=== PATIENT | female | born 1945 | race Caucasian/White ===

== ENCOUNTER 2021-05-17 19:42 | Emergency (ER) | payer OTHER, SELFPAY ==
--- NOTE | ~2021-05-17 | XR_ITS ---
EXAMINATION: XR chest 2V DATE: 05/17/2021 20:17 INDICATION: Weakness TECHNIQUE: PA and lateral views of the chest are obtained. COMPARISON: 09/24/2010 FINDINGS: The lungs are free of acute opacities. There is no pleural effusion or pneumothorax. The ca rdiomediastinal silhouette is normal. There is mild thoracic spondylosis. IMPRESSION: 1. No acute cardiopulmonary abnormality. Reviewed, dictated and finalized at location F. LUMIN METALWORKER
[2021-05-17 19:47] VITALS: BP 146/92; PULSE 84; RESP 18; TEMP 36.4; O2SAT 97
--- NOTE | 2021-05-17 20:07 | ECG_ITS ---
Measurements Intervals [place] Rate: 78 P: 45 [place]: 129 QRS: -25 QRSD: 95 T: 81 QT: 393 QTc: 449 Interpretive Statements SINUS RHYTHM ATRIAL PREMATURE COMPLEXES INCOMPLETE RIGHT BUNDLE BRANCH BLOCK DELAYED PRECORDIAL R/S TRANSITION BASELINE ARTIFACT- I, II, AVR, AVL, AVF, V3 BORDERLINE ECG Electronically Signed On 05-18-2021 7:22:27 CONTROL CLERK by Bennett Greer D.O.
--- NOTE | 2021-05-17 20:11 | PC.NURSE ---
Patient unsuccessful to provide a urine specimen. Patient taken to Xray via w/c.
--- NOTE | 2021-05-17 20:38 | ED.GENADULT ---
HPI - General Adult General Chief complaint: Unspecified Stated complaint: feeling bad for several weeks Time Seen by Provider: 05/17/21 19:50 Source: patient, RN notes reviewed and old records reviewed Mode of arrival: ambulatory Limitations: no limitations History of Present Illness HPI narrative: This is a 76 year old female with history of depression, anxiety, and hypertension who presents for evaluation for feeling unwell. Patient reports she does not feel well for several weeks. She does not have much of an appetite because nothing taste good. She is eating very little. She also reports some fatigue. She denies falling, chest pain, headache, shortness of breath, cough, abdominal pain or dysuria. She was given antibiotics for possible UTI 2 weeks ago but denies any urinary symptoms. She denies having diarrhea today. Related Data Allergies Allergy/AdvReac Type Severity Reaction Status Date / Time doxycycline Allergy Unknown Difficulty Verified 05/17/21 19:55 Breathing Penicillins Allergy Unknown Rash Verified 05/17/21 19:55 prednisone Allergy Unknown Difficulty Verified 05/17/21 19:55 Breathing Review of Systems Review of Systems: All systems reviewed & are unremarkable except as noted in HPI and below PMFSH Past Medical History Medical History Corneal abnormality Encounter for vitamin deficiency screening Screening for breast cancer Family History Family History Sibling Hypertension Family history of alcoholism Patient's brother is , Onset Age: 77 Father Family history of renal cell carcinoma Social History Social History Smoking packs per day: 1 Smoking cigarettes per day: 20.0 Years smoked: 20 Smoking pack-years: 20.00 Smoking status: Former smoker Smoking end date: 03/26/79 Alcohol intake: never Substance use: never Exam Const: General: cooperative, no acute distress and alert Orientation/consciousness: patient oriented x3 HENMT: Head: normal to inspection, normocephalic and atraumatic Face and sinus: face symmetric Throat: tonsils normal and uvula midline Chest: Chest palpation & inspection: normal inspection of the chest Resp: Effort & Inspection: normal respiratory effort and able to speak in complete sentences Auscultation: clear to auscultation bilaterally Cardio: Rate: regular rate Rhythm: regular rhythm Heart sounds: S1 normal heart sound present GI: GI Palp: Yes Soft to palpation, No Firmness to palpation present (GI), No Tenderness to palpation present (GI) and No Rigid due to palpation Back/Spine/Pelvis: Back: no CVA tenderness Skin: General skin exam: normal color Neuro: General: patient oriented x3 Course Reevaluation(s) Reevaluation #1: Patient was given oral potassium supplemenatation and magnesium supplementation in ER. THis is likely low because patient is not eating. She will follow up with PCP Date: 05/18/21 Time: 00:20 Vital Signs Vital signs: Vital Signs Temperature 97.6 F 05/17/21 19:47 Pulse Rate 84 05/17/21 19:47 Respiratory Rate 18 05/17/21 19:47 Blood Pressure 146/92 H 05/17/21 19:47 Pulse Oximetry 97 05/17/21 19:47 Temperature 98 F 05/18/21 00:35 Pulse Rate 75 05/18/21 00:35 Respiratory Rate 18 05/18/21 00:35 Blood Pressure 128/80 05/18/21 00:35 Pulse Oximetry 98 05/18/21 00:35 Medical Decision Making Vital Signs Vital Signs: Vital Signs Temperature 97.6 F 05/17/21 19:47 Pulse Rate 84 05/17/21 19:47 Respiratory Rate 18 05/17/21 19:47 Blood Pressure 146/92 H 05/17/21 19:47 Pulse Oximetry 97 05/17/21 19:47 Temperature 98 F 05/18/21 00:35 Pulse Rate 75 05/18/21 00:35 Respiratory Rate 18 05/18/21 00:35 Blood Pressure 128/80 05/18/21 00:35 Pulse Oximetry 98
[2021-05-17 20:44] LABS: Basophils Absolute Auto 0.1 K/mm3 (0.0-0.1); Basophils Percent Auto 0.8 % (0.2-1.2); Eosinophils Absolute Auto 0.1 K/mm3 (0-0.3); Hematocrit 40.4 % (37.0-47.0); Hemoglobin 13.7 g/dL (12.0-15.0); Immature Granulocyte Absolute 0.02 K/mm3 (0.00-0.031); Immature Granulocyte Percent A 0.2 % (0-0.5); Lymphocytes Absolute Auto 1.51 K/mm3 (0.9-3.2); Lymphocytes Percent Auto 17.6 % (18.3-44.2); Mean Corpuscular HGB Conc 33.9 g/dl (32-36); Mean Corpuscular Hemoglobin 34.8 pg (26-34); Mean Corpuscular Volume 102.5 fl (80-100); Mean Platelet Volume 10.2 fl (7.4-10.4); Monocytes Absolute Auto 0.8 K/mm3 (0.1-0.6); Monocytes Percent Auto 8.7 % (2.6-8.5); Neutrophils Absolute Auto 6.1 K/mm3 (1.3-6.7); Neutrophils Percent Auto 71.7 % (45.5-73.1); Platelet Count Result 271 k/mm3 (150-375); Red Blood Count 3.94 M/mm3 (4.2-5.4); Red Cell Distribution Width 12.7 % (11.5-14.5); White Blood Count 8.6 K/mm3 (4.5-10.0)
[2021-05-17 20:57] LABS: Alanine Aminotransferase 29 U/L (4-35); Albumin Level 4.1 g/dL (3.5-5.1); Alkaline Phosphatase 52 U/L (38-126); Anion Gap 4 mmol/L (8-16); Aspartate Amino Transferase 45 U/L (14-36); Bilirubin,Total 0.5 mg/dL (0.2-1.3); Blood Urea Nitrogen 15 mg/dL (7-17); Calcium 9.7 mg/dL (8.4-10.2); Carbon Dioxide 37 mmol/L (22-30); Chloride 96 mmol/L (98-107); Estimated CRCL calculation 59 ml/min; Estimated Glomerular Filt Rate > 60; Glucose 105 mg/dL (65-110); Sodium 137 mmol/L (137-145)
[2021-05-17] MEDS: POTASSIUM CHLORIDE 20 MEQ TABLET 40 MEQ PO (21:06)
[2021-05-17 21:14] LABS: Magnesium 1.3 mg/dL (1.6-2.3)
[2021-05-17 21:20] VITALS: RESP 18
[2021-05-17 21:22] LABS: Alveolar/Arterial O2 Gradient 47.4 mmHg; Base Excess ABG 8.6 mEq/l (+/-2.0); Carboxyhemoglobin 0.6 % THb (0-2.0); Fractional Inspired Oxygen 21 %; HCO3 ABG 33.6 mEq/l (22.0-26.0); Methemoglobin ABG 0.1 %THb (0-1.5); Oxygen Content ABG 16.4 %vol (16.0-22.0); PCO2 ABG 47.3 mmHg (35.0-45.0); PO2 FiO2 Ratio Arterial Blood 2.18 %; Reduced Hemoglobin 16.7 %THb (0-5.0); Total Hemoglobin 14.2 g/dL (12.0-18.0); pH ABG 7.469 (7.350-7.450)
[2021-05-17 21:33] LABS: PO2 ABG 45.7 mmHg (80.0-100.0)
[2021-05-17 21:34] LABS: Device ROOM AIR; Oxygen Saturation ABG 83.9 % (95.0-100.0); Oxyhemoglobin 82.6 % THb (90.0-100.0); Site Drawn LEFT BRACHIAL
[2021-05-17 22:26] LABS: Add Urine Microscopic? YES; Appearance Urine Clear (Clear); Bacteria Urine Trace /hpf; Bilirubin Urine Negative (Negative); Blood Urine Negative (Negative); Color Urine Yellow (Yellow); Glucose Urine UA Negative (Negative); Ketones Urine Negative (Negative); Leukocyte Esterase Ur Trace LEU/UL (Negative); Mucus Urine Rare /lpf; Nitrate Urine Negative (Negative); Protein Urine Negative (Negative); RBC Urine 0-2 /hpf (0-2); Specific Grav Ur 1.015 (1.001-1.035); Squamous Epithelial Cell Urine Few /hpf (Few); Urobilinogen Urine Negative mg/dL (<2.0); WBC Urine 0-3 /hpf
[2021-05-17] MEDS: MAGNESIUM SULF 2 GM/WATER 50ML 2 GM/50 ML BAG IVPB (22:37)
[2021-05-17 22:46] VITALS: BP 168/93; PULSE 75; RESP 18; O2SAT 99
[2021-05-17 22:49] VITALS: PULSE 73
--- NOTE | 2021-05-17 23:32 | PC.NURSE ---
Instructed by RN to ambulate with pulse ox. Walked around nurses station to restroom and back with oxygen saturation at 95%. Pt. denied shortness of breath or any other complaints during ambulation
--- NOTE | 2021-05-17 23:46 | PC.NURSE ---
Patient SpO2 was 95% while ambulating on room air.
[2021-05-18 00:35] VITALS: BP 128/80; PULSE 75; RESP 18; TEMP 36.6; O2SAT 98
== END 2021-05-18 00:37 | disposition home or self-care (01) ==
PROVIDERS: Emergency Provider General Practice; PCP Internal Medicine
DX: E87.6 Hypokalemia (principal); E83.42 Hypomagnesemia; I49.1 Atrial premature depolarization; Z87.891 Personal history of nicotine dependence; I45.10 Unspecified right bundle-branch block
CPT/HCPCS: 36415; 36600; 71046; 80053; 81001; 82375; 82805; 83050; 83735; 85025; 93005; 96365; 99284; A9270; J3475

== ENCOUNTER 2021-08-11 05:22 | Emergency (ER) | payer OTHER, SELFPAY ==
--- NOTE | ~2021-08-11 | CT_ITS ---
EXAMINATION: CT cervical spine wo con DATE: 08/11/2021 06:23 INDICATION: Head injury. TECHNIQUE: Computed tomography (CT) of the cervical spine was performed without intravenous contrast. Automated exposure control and iterative reconstruction technique were employed. The dose-length pro duct was 96.60 mGy-cm. COMPARISON: None FINDINGS: There is 38 degrees levoscoliosis of cervical spine. There is 2 mm retrolisthesis of C3 on C4, 3 mm anterolisthesis of C4 on C5, 2 mm retrolisthesis of C6 on C7, and 3 mm anterolisthesis of C7 on T1. Vertebral body heights are normal. There is mildly decreased disc height at C2-C3, severely d ecreased disc height at C3-C4, moderately decreased disc height at C4-C5, and severely decreased disc height from C5-C6 through C7-T1 with endplate remodeling. There is interbody fusion at C5-C6. The fo llowing disc levels are specifically discussed: C2-C3: There is mild bilateral uncovertebral joint osteoarthritis. There is mild right and severe lef t facet joint osteoarthritis. There is mild left neural foraminal stenosis. There is no central canal stenosis. C3-C4: There is severe right and mild left uncovertebral joint osteoarthritis. There is severe bilate ral facet joint osteoarthritis. There is moderate right and mild left neural foraminal stenosis. Ther e is mild central canal stenosis. C4-C5: There is severe right and mild left uncovertebral joint osteoarthritis. There is severe bilate ral facet joint osteoarthritis. There is mild bilateral neural foraminal stenosis. There is mild cent ral canal stenosis. C5-C6: There is mild bilateral uncovertebral joint hypertrophy. There is ankylosis of left facet join t. There is moderate hypertrophy of the facet joints. There is mild bilateral neural foraminal stenos is. There is mild central canal stenosis. C6-C7: There is severe bilateral uncovertebral joint osteoarthritis. There is mild right and severe l eft facet joint osteoarthritis. There is mild right and moderate left neural foraminal stenosis. Ther e is mild central canal stenosis. C7-T1: There is severe bilateral uncovertebral joint osteoarthritis. There is severe bilateral facet joint osteoarthritis. There is mild right and moderate left neural foraminal stenosis. There is mild central canal stenosis. IMPRESSION: 1. No fracture. 2. Severe cervical spondylosis. 3. Cervical levoscoliosis. Reviewed, dictated and finalized at location A.
--- NOTE | ~2021-08-11 | XR_ITS ---
EXAMINATION: XR shoulder LT min 2V DATE: 08/11/2021 06:27 INDICATION: Left shoulder injury. TECHNIQUE: 3 views of left shoulder were obtained. COMPARISON: None. FINDINGS: There is a comminuted fracture of proximal left humerus at the surgical neck. The main dist al fracture fragment demonstrates 4 mm medial displacement, 2 mm posterior displacement, impaction, a nd 9 degrees lateral angulation. There is mild osteoarthritis of glenohumeral joint and moderate oste oarthritis of acromioclavicular joint. IMPRESSION: 1. Two-part fracture of proximal left humerus. 2. Polyarticular osteoarthritis. Reviewed, dictated and finalized at location A.
--- NOTE | ~2021-08-11 | CT_ITS ---
EXAMINATION: CT brain wo con DATE: 08/11/2021 06:22 INDICATION: Head injury. TECHNIQUE: Computed tomography (CT) of the head was performed without intravenous contrast. The mA wa s adjusted according to patient size. Iterative reconstruction technique was employed. The dose-lengt h product was 681.00 mGy-cm. COMPARISON: None FINDINGS: There are scattered areas of low attenuation in the cerebral white matter. There is an old infarct in the right basal ganglia. There is an old infarct in the left occipital lobe. There is no i ntracranial hemorrhage, acute infarction, or abnormal intracranial mass lesion. The ventricles are no rmal in size. There is mild mucosal thickening in the paranasal sinuses. There are likely changes of ocular lens replacement surgeries. The mastoid air cells are normal. IMPRESSION: 1. 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 2. Moderate nonspecific cerebral white matter disease, which likely represents chronic small vessel i schemic disease. Reviewed, dictated and finalized at location A. IMPRESSION: 1. 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 2. Moderate nonspecific cerebral white matter disease, which likely represents chronic small vessel ischemic disease.
--- NOTE | ~2021-08-11 | XR_ITS ---
EXAMINATION: XR humerus LT DATE: 08/11/2021 06:27 INDICATION: Left shoulder injury. Fall. TECHNIQUE: 2 views of left humerus on 3 radiographs were obtained. COMPARISON: None. FINDINGS: There is a comminuted fracture of proximal humerus at the surgical neck. The main distal fr acture fragment demonstrates 2 mm posterior displacement, 4 mm medial displacement, and impaction. Th ere is mild osteoarthritis of glenohumeral joint and moderate osteoarthritis of acromioclavicular jose nt. IMPRESSION: 1. Comminuted fracture of surgical neck of proximal left humerus. 2. Polyarticular osteoarthritis. Reviewed, dictated and finalized at location A.
--- NOTE | 2021-08-11 05:25 | ECG_ITS ---
Measurements Intervals [place] Rate: 60 P: 75 MS: 133 QRS: 0 QRSD: 95 T: 69 QT: 417 QTc: 418 Interpretive Statements SINUS RHYTHM POSSIBLE LEFT ATRIAL ENLARGEMENT BASELINE ARTIFACT- I, II, III, AVR, AVL, AVF BORDERLINE ECG Electronically Signed On 08-11-2021 7:55:58 CDT by Bennett Greer D.O.
[2021-08-11 05:31] VITALS: BP 172/86; PULSE 61; RESP 16; TEMP 36.3; O2SAT 100
--- NOTE | 2021-08-11 05:33 | ED.FALL ---
HPI - Fall General Chief Complaint: Fall Stated Complaint: GLF Time Seen by Provider: 08/11/21 05:25 Source: patient History of Present Illness HPI Narrative: Patient presents after a fall patient was trying to get out of bed she is not exactly sure exactly how she fell but she ended up on the ground and thinks maybe she struck her head. was with her and woke up to a loud thud. He was trying to assist her however she was having a lot of pain on her left shoulder so he called an ambulance and the patient was brought in for evaluation. Patient was not unconscious when the has been woke up. Patient denies any focal numbness or weakness. She denies any prodrome prior to the fall chest pain, lightheadedness, dizziness. Reports has been feeling well denies any recent fevers, cough, congestion, nausea, vomiting. Patient ports her primary area of pain is on her left shoulder and upper arm. It is achy, constant, radiates down her arm worse with any attempts of movement of the shoulder. Related Data Home Medications Medication Instructions Recorded Confirmed docusate sodium 100 mg capsule 100 mg PO DAILY 06/23/21 07/08/21 nisoldipine 20 mg tablet,extended mg PO 06/23/21 07/08/21 release 24 hr nitrofurantoin 100 mg capsule 100 mg PO Q12H 06/23/21 07/08/21 polyethylene glycol 3350 17 17 g PO BID 06/23/21 07/08/21 gram/dose oral powder triamcinolone acetonide 0.1 % 1 applic TOPICAL BID 06/23/21 07/08/21 topical cream valacyclovir 1 gram tablet 1,000 mg PO TID 06/23/21 07/08/21 Allergies Allergy/AdvReac Type Severity Reaction Status Date / Time doxycycline Allergy Unknown Difficulty Verified 08/11/21 05:36 Breathing Penicillins Allergy Unknown Rash Verified 08/11/21 05:36 prednisone Allergy Unknown Difficulty Verified 08/11/21 05:36 Breathing Review of Systems Review of Systems: CONSTITUTIONAL: Denies fever, chills, or sweats. EYES: Denies visual changes, redness, or discharge. ENT: Denies rhinorrhea, congestion, sore throat, or otalgia. CARDIOVASCULAR: Denies chest pain, palpitations, or edema. RESPIRATORY: Denies cough or dyspnea. GASTROINTESTINAL: Denies abdominal pain, nausea, vomiting, or diarrhea. GENITOURINARY: Denies dysuria or hematuria. SKIN: Denies rash or itching. MUSCULOSKELETAL: Denies back pain, or myalgia. NEUROLOGIC: Denies headache, numbness, dizziness, or weakness. PSYCHIATRIC: Denies anxiety or depression. All systems reviewed & are unremarkable except as noted in HPI and below PMFSH Past Medical History Medical History Corneal abnormality Encounter for vitamin deficiency screening Screening for breast cancer Family History Family History Sibling Hypertension Family history of alcoholism Patient's brother is , Onset Age: 77 Father Family history of renal cell carcinoma Social History Social History Smoking packs per day: 1 Smoking cigarettes per day: 20.0 Years smoked: 20 Smoking pack-years: 20.00 Smoking status: Former smoker Smoking end date: 03/26/79 Alcohol intake: never Substance use: never Substance use type: does not use Exam Narrative: GENERAL: Well-appearing, well-nourished, and in no acute distress. HEAD: Normocephalic, atraumatic. EYES: PERRLA and EOMI. ENT: Nares clear, no rhinorrhea or epistaxis. Mucous membranes moist. NECK: Supple. No masses. No JVD CHEST: Clear to auscultation. No respiratory distress. No wheezes rales or rhonchi HEART: Regular rate and rhythm. No murmur heard. Normal peripheral pulses. ABDOMEN: Soft, nontender, nondistended, normal active bowel sounds. EXTREMITIES: Limited range of motion to the left shoulder due to pain diffuse tenderness on the left shoulder and humerus SKIN: Warm, dry, no rash. NEURO: Cranial nerves II through
--- NOTE | 2021-08-11 05:54 | PC.NURSE ---
Pt to Ct via stretcher at this time.
[2021-08-11 06:35] LABS: Appearance Urine Clear (Clear); Bilirubin Urine Negative (Negative); Color Urine Yellow (Yellow); Glucose Urine UA Negative (Negative); Ketones Urine Negative (Negative); Leukocyte Esterase Ur Negative LEU/UL (Negative); Nitrate Urine Negative (Negative); Protein Urine 1+ mg/dL (Negative); Urobilinogen Urine 0.2 mg/dL (<2.0)
[2021-08-11 06:36] LABS: Add Urine Microscopic? YES; Blood Urine Trace-Intact (Negative)
[2021-08-11 06:52] LABS: Bacteria Urine Trace /hpf; Hyaline Casts Urine 15-19 /lpf; Mucus Urine Rare /lpf; RBC Urine 0-2 /hpf (0-2); Squamous Epithelial Cell Urine Rare /hpf (Few)
[2021-08-11 06:55] LABS: Basophils Absolute Auto 0.1 K/mm3 (0.0-0.1); Basophils Percent Auto 0.6 % (0.2-1.2); Eosinophils Absolute Auto 0.4 K/mm3 (0-0.3); Eosinophils Percent Auto 3.2 % (0-4.4); Hematocrit 37.9 % (37.0-47.0); Hemoglobin 12.5 g/dL (12.0-15.0); Immature Granulocyte Absolute 0.08 K/mm3 (0.00-0.031); Immature Granulocyte Percent A 0.6 % (0-0.5); Lymphocytes Percent Auto 7.3 % (18.3-44.2); Mean Corpuscular Hemoglobin 34.6 pg (26-34); Mean Platelet Volume 10.7 fl (7.4-10.4); Monocytes Absolute Auto 1.3 K/mm3 (0.1-0.6); Monocytes Percent Auto 10.6 % (2.6-8.5); Neutrophils Absolute Auto 9.6 K/mm3 (1.3-6.7); Neutrophils Percent Auto 77.7 % (45.5-73.1); Platelet Count Result 326 k/mm3 (150-375); Red Blood Count 3.61 M/mm3 (4.2-5.4); Red Cell Distribution Width 12.2 % (11.5-14.5); White Blood Count 12.4 K/mm3 (4.5-10.0)
[2021-08-11 07:05] LABS: Alanine Aminotransferase 20 U/L (6-35); Albumin Level 3.9 g/dL (3.5-5.1); Alkaline Phosphatase 67 U/L (38-126); Anion Gap 5 mmol/L (8-16); Aspartate Amino Transferase 34 U/L (14-36); Bilirubin,Total 0.5 mg/dL (0.2-1.3); Blood Urea Nitrogen 21 mg/dL (7-17); Calcium 9.7 mg/dL (8.4-10.2); Carbon Dioxide 34 mmol/L (22-30); Chloride 92 mmol/L (98-107); Estimated CRCL calculation 49 ml/min; Estimated Glomerular Filt Rate > 60; Glucose 119 mg/dL (65-110); Magnesium 1.8 mg/dL (1.6-2.3); Potassium 2.9 mmol/L (3.4-5.0); Sodium 131 mmol/L (137-145)
[2021-08-11 07:06] LABS: INR 1.1; Prothrombin Time 13.5 Seconds (11.1-14.7)
[2021-08-11 07:07] LABS: Partial Thromboplastin Time 26.1 SECONDS (22.3-36.8)
[2021-08-11 07:58] VITALS: BP 149/83; PULSE 65; RESP 17; O2SAT 99
== END 2021-08-11 08:00 | disposition home or self-care (01) ==
PROVIDERS: Emergency Provider Emergency Medicine; PCP Internal Medicine
DX: S42.222A 2-part displaced fracture of surgical neck of left humerus, initial encounter for closed fracture (principal); Z87.891 Personal history of nicotine dependence; R90.82 White matter disease, unspecified; M47.812 Spondylosis without myelopathy or radiculopathy, cervical region; M19.012 Primary osteoarthritis, left shoulder; R94.31 Abnormal electrocardiogram [ECG] [EKG]; R82.998 Other abnormal findings in urine; W06.XXXA Fall from bed, initial encounter
CPT/HCPCS: 36415; 51701; 70450; 72125; 73030; 73060; 80053; 81001; 83735; 85025; 85610; 85730; 87086; 93005; 99284

== ENCOUNTER 2022-02-25 14:00 | Outpatient (CLI) | payer OTHER, SELFPAY ==
--- NOTE | ~2022-02-25 | US_ITS ---
US arterial ankle brachial ind INDICATION: Chronic ulcer of the right ankle TECHNIQUE: Segmental pressures and plethysmographic and Doppler waveforms of the brachial and lower e xtremity arteries were obtained. COMPARISON: None. FINDINGS: Right and left brachial artery pressures of 139 mm Hg and 115 mm Hg, respectively, are concordant (no rmal difference <= 30 mmHg). The right ankle-brachial index (MIMI) is 1.12 (normal >= 0.9-1.0). The right great toe-brachial index (TBI) is 0.71 (normal >= 0.60). The left MIMI is 1.17. The left TBI is 0.55. IMPRESSION: 1. Normal ankle-brachial indices. 2: Diminished left toe brachial index consistent with mild peripheral arterial disease. 3: Asymmetrically decreased left brachial pressure suggesting left subclavian stenosis. Reviewed, dictated and finalized at location A. OMER CONTACT REPRESENTATIVE IMPRESSION: 1. Normal ankle-brachial indices. 2: Diminished left toe brachial index consistent with mild peripheral arterial disease. 3: Asymmetrically decreased left brachial pressure suggesting left subclavian s tenosis.
== END 2022-02-25 14:01 | disposition home or self-care (01) ==
LOC: ANHIMG 14:00
PROVIDERS: PCP Internal Medicine; Visit Provider Internal Medicine
DX: L97.318 Non-pressure chronic ulcer of right ankle with other specified severity (principal)
CPT/HCPCS: 93922

== ENCOUNTER 2022-03-25 07:29 | Outpatient (RCR) | payer OTHER, SELFPAY ==
[2022-02-16 14:23] VITALS: BMI 16.8
== END 2022-04-24 15:52 | disposition home or self-care (01) ==
LOC: ANHWOC 07:29
PROVIDERS: PCP Internal Medicine; Visit Provider Internal Medicine
DX: L97.502 Non-pressure chronic ulcer of other part of unspecified foot with fat layer exposed (principal)
CPT/HCPCS: 99212; 99214; G0463

== ENCOUNTER 2022-05-28 14:08 | Outpatient (RCR) | payer OTHER, SELFPAY ==
--- NOTE | 2022-05-28 15:13 | PTOPEVDC ---
Assessment and note entered by Ericka Hyde DPT Thank you for referring Nita Duffy to [facility].? An evaluation has been completed. No further treatment is needed. Evaluation Information Assessment Status Evaluation Subjective Information Pt had rectal prolapse repair on 03/31/22. Reports she was having difficulty having a BM and is now noticing less pain. Urinates more times in the morning and less at night, unsure how many times. Thinks she wakes 2-3 times at night to void. Denies urine leakage. Denies urinary pain. Lately BM 1 time a day, not really any pain. A couple times a week may get small amounts of fecal incontinence. Denies a history of pelvic pain. Pt has had 6 children (1 set of twins), with the twins. No return appointment scheduled with MD. Reported Pain Level Pain Score 0: Self Report Assessment PT Clinical Summary The patient is presenting to skilled therapy following surgery for rectal prolapse. She presents with decreased core and pelvic floor strength and reports weekly fecal incontinence. The patient will likely benefit from skilled therapy and am recommending 2 different provider's with more specialized rectal education/training. She will be discharged from this facility this date. Plan of Care PT Services Indicated Yes
== END 2022-08-11 08:39 | disposition home or self-care (01) ==
LOC: ANHPT 14:08
PROVIDERS: PCP Internal Medicine
DX: K62.3 Rectal prolapse (principal)
CPT/HCPCS: 97162

== ENCOUNTER → 2022-06-25 13:59 | Outpatient (CLI) | payer OTHER, SELFPAY ==
--- NOTE | ~2022-06-25 | XR_ITS ---
XR ankle RT min 3V DATE: 06/25/2022 14:16 INDICATION: Pain laterally TECHNIQUE: 4 views COMPARISON: None FINDINGS: Diffuse osteopenia. No fracture or dislocation of the ankle or disruption of the ankle mortise. No periosteal reaction or bone destruction. Prominent degenerative change at the tarsometatarsal joints. Plantar calcaneal enthesopathy. Post osteotomy changes of the first metatarsal bone. IMPRESSION: Osteopenia No fracture, dislocation or bone destruction of the right ankle Plantar calcaneal enthesopathy Status post right first osteotomy Reviewed, dictated and finalized at location A.
== END ==
PROVIDERS: PCP Nurse Practitioner Family; Visit Provider Nurse Practitioner Family
DX: M85.871 Other specified disorders of bone density and structure, right ankle and foot (principal); M77.31 Calcaneal spur, right foot
CPT/HCPCS: 73610

== ENCOUNTER 2023-02-07 03:58 | Inpatient (IN) | payer OTHER, SELFPAY ==
[2023-02-07] VITALS (9 sets, daily range): BP systolic 92–124; BP diastolic 57–86; PULSE 54–84; RESP 12–18; TEMP 36.6–37; O2SAT 95–100; BMI 19.6
--- NOTE | ~2023-02-07 | XR_ITS ---
EXAMINATION: XR chest 1V portable INDICATION: Confusion and wheezing TECHNIQUE: Portable AP chest at 1054 hours COMPARISON: 02/07/2023 FINDINGS: There is mild atelectasis of the lung bases. No pleural effusion or pneumothorax. The cardi omediastinal silhouette is normal. Calcified nodule of the right midlung zone is consistent with old granulomatous disease. There is colonic in position between the liver and right hemidiaphragm. 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 IMPRESSION: 1. Mild atelectasis of the lung bases. Reviewed, dictated and finalized at location F. TRICAL SIGN SERVICER
--- NOTE | ~2023-02-07 | XR_ITS ---
EXAMINATION: XR hip LT min 3V w AP pelvis DATE: 02/07/2023 07:04 INDICATION: Fall. TECHNIQUE: An anteroposterior view of the pelvis and 3 views on 4 radiographs of the left hip were ob tained. COMPARISON: None. FINDINGS: There is an intertrochanteric fracture of proximal femur. The distal fracture fragment demo nstrates 32 degrees varus attenuation, 13 degrees posterior angulation, and 7 mm anterior displacemen t. There is mild osteoarthritis of the hips. There is lumbar levoscoliosis and severe spondylosis. Patel rgical clips overlie left pelvis. IMPRESSION: 1. Intertrochanteric fracture of proximal left femur. 2. Mild osteoarthritis of the hips. Reviewed, dictated and finalized at location E. ICAL LABORATORY AIDES TEACHER
--- NOTE | ~2023-02-07 | XR_ITS ---
EXAMINATION: XR chest 1V portable DATE: 02/07/2023 07:54 INDICATION: Abnormal electrocardiogram. Preop. TECHNIQUE: A single frontal view of the chest was obtained. COMPARISON: Chest 2 views 09/24/2010 FINDINGS: There is chronic eventration of anterior right hemidiaphragm. Calcified pulmonary nodules a re consistent with old granulomatous disease. No pleural effusion or pneumothorax. The heart size is normal. There is an old fracture of proximal left humerus with nonunion. IMPRESSION: 1. No acute cardiopulmonary disease. Reviewed, dictated and finalized at location A. OL TREASURER
--- NOTE | ~2023-02-07 | XR_ITS ---
EXAMINATION: XR surgery orthopedic DATE: 02/08/2023 19:24 INDICATION: Intertrochanteric fracture of proximal left femur. TECHNIQUE: 4 intraoperative spot fluoroscopic views of left femur were obtained. I was not present. F luoroscopy exposure time was 4 minutes and 15 seconds. COMPARISON: Left hip radiographs 02/07/2023 FINDINGS: There is an intertrochanteric fracture of proximal left femur. The main distal fracture fra gment demonstrates near-anatomic alignment. Internal fixation is seen with antegrade intramedullary r od, femoral head/neck screw, and distal interlocking screw. There is mild left hip osteoarthritis. Patel rgical clips overlie the left inguinal region. IMPRESSION: 1. Intertrochanteric fracture of proximal left femur status post open reduction internal fixation. 2. Mild left hip osteoarthritis. Reviewed, dictated and finalized at location E. BAG CUTTING MACHINE OPERATOR
--- NOTE | ~2023-02-07 | CT_ITS ---
EXAMINATION: CT brain wo con DATE: 02/10/2023 11:24 INDICATION: Confusion. TECHNIQUE: Computed tomography (CT) of the head was performed without intravenous contrast. The dose- length product was 681.00 mGy-cm. Automated exposure control and iterative reconstruction technique w ere employed. COMPARISON: CT dated 08/12/2019 FINDINGS: Generalized atrophy. There are scattered moderate periventricular and subcortical white mat ter changes, most likely related to small vessel ischemic disease (microangiopathy). 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 There is intracranial atherosclerosis. No ac absentee-shawnee infarction, hemorrhage, mass or mass effect. No midline shift. Basilar cisterns are patent. Paran vannessa sinuses and mastoids are pneumatized. No depressed skull fractures. IMPRESSION: 1. No acute intracranial abnormality. No significant interval change. Reviewed, dictated and finalized at location B. ORK SECURITY ENGINEER
--- NOTE | 2023-02-07 07:11 | ECG_ITS ---
Measurements Intervals [place] Rate: 53 P: 50 MA: 161 QRS: -18 QRSD: 88 T: 96 QT: 332 QTc: 313 Interpretive Statements SINUS BRADYCARDIA LOW QRS VOLTAGE IN PRECORDIAL LEADS BORDERLINE R WAVE PROGRESSION, ANTERIOR LEADS BORDERLINE ST-T WAVE ABNORMALITY- HIGH LATERAL LEADS BASELINE ARTIFACT- I, II, AVR, AVL, V4-V6 BORDERLINE ECG COMPARED TO ECG 08/11/2021 06:28:24 SINUS BRADYCARDIA NOW PRESENT ST-T WAVE ABNORMALITY NOW PRESENT Electronically Signed On 02-07-2023 8:10:31 DRIVER SUPERVISOR by Bennett Greer D.O.
--- NOTE | 2023-02-07 07:13 | ED.LOWEXIN ---
HPI - Extremity Injury (Lower) General Chief Complaint: Extremity Injury, Lower Stated Complaint: L leg pain d/t fall Time Seen by Provider: 02/07/23 07:13 History of Present Illness HPI Narrative: Patient is a 78-year-old female who presents to the emergency department this morning after a fall at home. Patient says that she got out of bed to go use the restroom and fell landing on her left side. Patient states that she ambulates using a cane Secondary to history of scoliosis. She denies hitting her head, denies any loss of consciousness, and denies any blood thinner use. Patient was unable to get back up. who was present in the room with her heard her fall and woke up immediately. Patient admits that her left hip pain is only present when she moves, however, if she is resting without moving her left lower extremity her pain manageable at a 2. Patient denies any chest pain, shortness of breath, nausea, vomiting, abdominal pain, dysuria, hematuria, constipation, diarrhea, melena, hematochezia, fevers or chills. Patient also denies any headaches, dizziness, lightheadedness, blurry visions, focal weakness, numbness and or tingling. There are no other modifying, alleviating, or precipitating factors at this time. Related Data Home Medications Medication Instructions Recorded Confirmed clindamycin HCl 150 mg capsule 150 mg PO Q6H 02/09/22 02/16/22 cyanocobalamin (vitamin B-12) 1,000 mcg PO DAILY 02/09/22 02/16/22 1,000 mcg capsule multivitamin 1 tablet PO DAILY 02/09/22 02/16/22 pumpkin seed extract-soy germ 300 1 cap PO DAILY 02/09/22 02/16/22 mg capsule (Azo Bladder Control) Allergies Allergy/AdvReac Type Severity Reaction Status Date / Time doxycycline Allergy Unknown Difficulty Verified 02/16/22 14:42 Breathing Penicillins Allergy Unknown Rash Verified 02/16/22 14:42 prednisone Allergy Unknown Difficulty Verified 02/16/22 14:42 Breathing Review of Systems Review of Systems: All systems are reviewed and are negative unless stated otherwise in the HPI. [facility] Past Medical History Medical History Closed fracture of shoulder Corneal abnormality Encounter for vitamin deficiency screening Screening for breast cancer Family History Family History Sibling Hypertension Family history of alcoholism Patient's brother is , Onset Age: 77 Father Family history of renal cell carcinoma Social History Social History Smoking packs per day: 1 Smoking cigarettes per day: 20.0 Years smoked: 20 Smoking pack-years: 20.00 Smoking status: Former smoker Smoking end date: 03/26/79 Alcohol intake: never Substance use: never Substance use type: does not use Lack of Transportation: No Lack of Food: Never True Current Housing: I Have Housing Concerned About Future Housing: No Difficulty Paying Gas/Electric Bills: No Difficulty Paying for Meds: No Currently Unemployed: No Education: High School Diploma/GED Difficulty w/ Childcare or Family Care: No Exam Narrative: General: Alert, awake, afebrile, in no acute distress. HEENT: PERRL, no rhinorrhea, no post nasal drip, oropharynx clear. Neck: Trachea midline, no JVD, no lymphadenopathy. Cardiovascular: Regular rate and rhythm, no murmurs, rubs or gallops, no peripheral edema. Respiratory: Clear to auscultation bilaterally, no tachypnea, no wheezing, no rhonchi, no rubs, no respiratory distress. Abdomen: Soft, nontender, nondistended, no rebound, no guarding, no peritoneal signs. Musculoskeletal: No joint swelling or deformity, normal muscle tone, decreased ROM of the LLE at the L hip joint due to pain. Skin: No rashes or petechia, no signs of infection. Psychiatric: Alert and oriented, normal behavior and judgment for situation. Neuro
[2023-02-07 07:42] LABS: Basophils Absolute Auto 0.1 K/mm3 (0.0-0.1); Basophils Percent Auto 0.3 % (0.2-1.2); Eosinophils Absolute Auto 0.1 K/mm3 (0-0.3); Eosinophils Percent Auto 0.7 % (0-4.4); Hematocrit 34.6 % (37.0-47.0); Hemoglobin 11.9 g/dL (12.0-15.0); Immature Granulocyte Absolute 0.09 K/mm3 (0.00-0.031); Immature Granulocyte Percent A 0.5 % (0-0.5); Lymphocytes Absolute Auto 0.97 K/mm3 (0.9-3.2); Lymphocytes Percent Auto 5.3 % (18.3-44.2); Mean Corpuscular HGB Conc 34.4 g/dl (32-36); Mean Corpuscular Hemoglobin 33.1 pg (26-34); Mean Corpuscular Volume 96.4 fl (80-100); Mean Platelet Volume 10.3 fl (7.4-10.4); Monocytes Absolute Auto 1.1 K/mm3 (0.1-0.6); Neutrophils Absolute Auto 15.9 K/mm3 (1.3-6.7); Neutrophils Percent Auto 87.2 % (45.5-73.1); Platelet Count Result 298 k/mm3 (150-375); Red Blood Count 3.59 M/mm3 (4.2-5.4); Red Cell Distribution Width 13.7 % (11.5-14.5); White Blood Count 18.2 K/mm3 (4.5-10.0)
[2023-02-07 07:56] LABS: Alanine Aminotransferase 23 U/L (6-35); Albumin Level 3.9 g/dL (3.5-5.1); Alkaline Phosphatase 57 U/L (38-126); Anion Gap 7 mmol/L (8-16); Aspartate Amino Transferase 35 U/L (14-36); Bilirubin,Total 0.5 mg/dL (0.2-1.3); Blood Urea Nitrogen 31 mg/dL (7-17); Calcium 10.5 mg/dL (8.4-10.2); Carbon Dioxide 27 mmol/L (22-30); Chloride 100 mmol/L (98-107); Estimated CRCL calculation 42 ml/min; Estimated Glomerular Filt Rate > 60; Glucose 125 mg/dL (65-110); Potassium 2.8 mmol/L (3.4-5.0); Sodium 134 mmol/L (137-145)
[2023-02-07 08:28] LABS: Magnesium 1.4 mg/dL (1.6-2.3)
[2023-02-07] MEDS: POTASSIUM CHLORIDE 20 MEQ ER TABLET 40 MEQ PO ×2 (08:32→15:05)
[2023-02-07 08:40] LABS: Partial Thromboplastin Time 23.8 SECONDS (22.3-36.8)
--- NOTE | 2023-02-07 13:47 | PM.IMHP ---
H&P: HPI History of Present Illness Date/Time: 02/07/23 13:47 Chief Complaint: Nita Duffy is a 78 year old female with PMH of HTN, gastric ulcer, and right ankle osteomyelitis who presents after a fall from home. She denies any LOC. She states she was getting up to go the bathroom and tripped. She denies falls with standing but does occasionally feel light headed if she rises to quickly. No falls in last 6 months. She denies any recent illness and has been in her usual state of health with the exception of continuing treatment for osteomyelitis of the right ankle. She has underwent 6 weeks of IV abx and is now snf through an extended oral regimen with bactrim. On ED evaluation an Intertrochanteric fracture of proximal left femur. was found on imaging. A CXR was clear. Labs were remarkable for potassium of 2.8 and magnesium of 1.4. Otherwise, lab data was grossly unremarkable. Orthopedics consulted and the patient is being admitted for further management. Review of Systems Review of Systems: CONSTITUTIONAL: ?No new weight loss, fever, chills, weakness, or fatigue. SKIN: ?No rash or pruritis. CARDIOVASCULAR: ?No chest pain, chest pressure or chest discomfort. No palpitations.? No PND or orthopnea. RESPIRATORY: ?No shortness of breath, cough or sputum. GASTROINTESTINAL: ?No anorexia, nausea, vomiting, constipation PMFSH Past Medical History Medical History Closed fracture of shoulder Corneal abnormality Encounter for vitamin deficiency screening Screening for breast cancer Family History Family History Sibling Hypertension Family history of alcoholism Patient's brother is , Onset Age: 77 Father Family history of renal cell carcinoma Social History Social History Smoking packs per day: 1 Smoking cigarettes per day: 20.0 Years smoked: 20 Smoking pack-years: 20.00 Smoking status: Former smoker Tobacco type: cigarettes Smoking end date: 03/26/79 Alcohol intake: never Substance use: never Substance use type: does not use Lack of Transportation: No Lack of Food: Never True Current Housing: I Have Housing Concerned About Future Housing: No Difficulty Paying Gas/Electric Bills: No Difficulty Paying for Meds: No Currently Unemployed: No Education: High School Diploma/GED Difficulty w/ Childcare or Family Care: No Spiritual care concerns: No Meds Home Medications and Allergies Home Medications Medication Instructions Recorded Confirmed Type silver sulfadiazine 1 % topical 1 applic topical DAILY #25 grams 10/10/21 02/07/23 Rx cream (Silvadene) lorazepam 0.5 mg tablet 0.5 mg PO TID PRN anxiety #90 tabs 01/12/22 02/07/23 Rx cyanocobalamin (vitamin B-12) 1,000 mcg PO DAILY 02/09/22 02/07/23 History 1,000 mcg capsule multivitamin 1 tablet PO DAILY 02/09/22 02/07/23 History fluticasone propionate 50 2 spray intranasal DAILY #15.8 mL 02/19/22 02/07/23 Rx mcg/actuation nasal spray,suspension (Allergy Relief (fluticasone)) losartan 100 1 tablet PO DAILY #90 tabs 02/19/22 02/07/23 Rx mg-hydrochlorothiazide 25 mg tablet levothyroxine 50 mcg tablet 50 mcg PO DAILY #90 tabs 03/10/22 02/07/23 Rx potassium chloride 10 mEq 10 meq PO DAILY #7 tabs 03/24/22 02/07/23 Rx tablet,extended release amlodipine 5 mg tablet 5 mg PO DAILY 02/07/23 02/07/23 History biotin 1,000 mcg chewable tablet 1,000 mcg PO DAILY 02/07/23 02/07/23 History calcium citrate 500 mg PO DAILY 02/07/23 02/07/23 History carvedilol 12.5 mg tablet 12.5 mg PO Q12H 02/07/23 02/07/23 History cholecalciferol (vitamin D3) 125 125 mcg PO DAILY 02/07/23 02/07/23 History mcg (5,000 unit) tablet (Vitamin D3) esomeprazole magnesium 40 mg 40 mg PO DAILY 02/07/23 02/07/23 History capsule,дмитрий
--- NOTE | 2023-02-07 14:27 | PM.CNOR ---
Assessment and Plan Assessment and plan (1) Fracture, intertrochanteric, left femur: Code(s): S72.142A - Displaced intertrochanteric fracture of left femur, initial encounter for closed fracture Status: Acute Assessment and Plan: SMAIR IS HERE FOR HER LEFT HIP INJURY AND NOW WITH A CONFIRMED LEFT INTERTROCHANTERIC FEMUR FRACTURE. SHE DENIES ANY OTHER EXTREMITY PAIN OR SWELLING. HISTORY, EXAM AND RADIOGRAPHS REVIEWED WITH THE PATIENT. REFERRING PHYSICIAN RECORDS AND IMAGES REVIEWED. CONDITION, NATURE, ETIOLOGY AND COURSE OF NATURAL HISTORY REVIEWED. CONSERVATIVE AND OPERATIVE TREATMENT OPTIONS REVIEWED WELL THE RISKS AND BENEFITS OF EACH. XRAYS SHOW DISPLACED LEFT INTERTROCHANTERIC FEMUR FRACTURE. SHE WILL REQUIRE INSERTION OF FEMORAL TRISTAN LEFT HIP. DISCUSSED NONOPERATIVE AND OPERATIVE TREATMENT OPTIONS WITH THE PATIENT. THE PATIENT'S QUESTIONS WERE ANSWERED. THE PATIENT DESIRES OPERATIVE TREATMENT. DISCUSSED ____INSERTION OF FEMORAL TRISTAN AND HIP SCREW . RISKS OF SURGERY INCLUDING BUT NOT LIMITED TO NEUROVASCULAR DAMAGE, WOUND COMPLICATIONS, BLOOD CLOT, PULMONARY EMBOLUS, STROKE, [place], ANESTHETIC RISKS UP TO AND INCLUDING WERE REVIEWED. CONTINUED PAIN AND POSSIBLE DYSFUNCTION WERE EXPLAINED. NO GUARANTEES WERE OFFERED. THE PATIENT UNDERSTANDS AND WISHES TO PROCEED. History of Present Illness HPI Consult date: 02/07/23 Chief complaint: L IT FX Narrative: SAMIR IS HERE FOR F/U OF HER LEFT INJURY SHE SUSTAINED WHEN SHE WAS ON HER WAY TO THE BATHROOM. SHE FELL ONTO HER LEFT SIDE AND WAS SEEN IN THE ED. XRAYS SHOWED THAT SHE SUSTAINED A LEFT INTERTROCHANTERIC FEMUR FRACTURE. ORTHOPEDIC CONSULTATION WAS REQUESTED. SHE DENIES ANY CP OR SOB. SHE DENIES ANY OTHER EXTREMITY PAIN OR ANY NEW BACK PAIN. SHE HAS SOME PREEXISTING LOW BACK PAIN AND SHE AMBULATES WITH A CANE PMF Past Medical History Medical History Closed fracture of shoulder Corneal abnormality Encounter for vitamin deficiency screening Screening for breast cancer Family History Family History Sibling Hypertension Family history of alcoholism Patient's brother is , Onset Age: 77 Father Family history of renal cell carcinoma Social History Social History Smoking packs per day: 1 Smoking cigarettes per day: 20.0 Years smoked: 20 Smoking pack-years: 20.00 Smoking status: Former smoker Smoking end date: 03/26/79 Alcohol intake: never Substance use: never Substance use type: does not use Lack of Transportation: No Lack of Food: Never True Current Housing: I Have Housing Concerned About Future Housing: No Difficulty Paying Gas/Electric Bills: No Difficulty Paying for Meds: No Currently Unemployed: No Education: High School Diploma/GED Difficulty w/ Childcare or Family Care: No Meds Home Medications and Allergies Home Medications Medication Instructions Recorded Confirmed Type silver sulfadiazine 1 % topical 1 applic topical DAILY #25 grams 10/10/21 02/07/23 Rx cream (Silvadene) lorazepam 0.5 mg tablet 0.5 mg PO TID PRN anxiety #90 tabs 01/12/22 02/07/23 Rx cyanocobalamin (vitamin B-12) 1,000 mcg PO DAILY 02/09/22 02/07/23 History 1,000 mcg capsule multivitamin 1 tablet PO DAILY 02/09/22 02/07/23 History fluticasone propionate 50 2 spray intranasal DAILY #15.8 mL 02/19/22 Rx mcg/actuation nasal spray,suspension (Allergy Relief (fluticasone)) losartan 100 1 tablet PO DAILY #90 tabs 02/19/22 02/07/23 Rx mg-hydrochlorothiazide 25 mg tablet levothyroxine 50 mcg tablet 50 mcg PO DAILY #90 tabs 03/10/22 02/07/23 Rx potassium chloride 10 mEq 10 meq PO DAILY #7 tabs 03/24/22 02/07/23 Rx tablet,extended release amlodipine 5 mg tablet 5 mg PO DAILY 02/07/23 02/07/23 History carvedilol 12.5
[2023-02-07] MEDS: MAGNESIUM SULF 2 GM/WATER 50ML 2 GM/50 ML BAG IVPB (15:04)
[2023-02-07] MEDS: SUCRALFATE 1 GM TABLET PO (16:17)
[2023-02-07] MEDS: MORPHINE SULFATE (*CRX) 2 MG/ML INJ IV PUSH (18:37)
--- NOTE | 2023-02-07 21:27 | PC.NURSE ---
Spoke with Dr. Lopez about patient uncontrolled pain to hip fx and increased anxiety and agitation. New orders received for trazodone 50 mg po once and Dilaudid 0.5mg IVP Q3H PRN.
[2023-02-07] MEDS: carvediloL 12.5 MG TABLET PO (21:37)
[2023-02-07] MEDS: SULFAMETHOXAZOLE/TRIMETHOPRIM 800/160 MG DS TABLET 1 TAB PO (21:45)
[2023-02-07] MEDS: HYDROmorphone HCL INJ (*CRX) 1 MG/ML SYR 0.5 MG IV PUSH (21:45)
[2023-02-07] MEDS: traZODone HCL 50 MG TABLET PO (21:45)
[2023-02-08] VITALS (14 sets, daily range): BP systolic 100–142; BP diastolic 56–81; PULSE 63–88; RESP 12–16; TEMP 36.1–37.6; O2SAT 95–100; BMI 19.6
[2023-02-08 07:20] LABS: Hematocrit 35.8 % (37.0-47.0); Hemoglobin 11.8 g/dL (12.0-15.0); Mean Corpuscular Hemoglobin 32.6 pg (26-34); Mean Corpuscular Volume 98.9 fl (80-100); Mean Platelet Volume 10.4 fl (7.4-10.4); Platelet Count Result 255 k/mm3 (150-375); Red Blood Count 3.62 M/mm3 (4.2-5.4); Red Cell Distribution Width 13.9 % (11.5-14.5); White Blood Count 12.4 K/mm3 (4.5-10.0)
[2023-02-08 07:29] LABS: Alanine Aminotransferase 23 U/L (6-35); Albumin Level 3.9 g/dL (3.5-5.1); Alkaline Phosphatase 55 U/L (38-126); Anion Gap 7 mmol/L (8-16); Aspartate Amino Transferase 35 U/L (14-36); Bilirubin,Total 0.5 mg/dL (0.2-1.3); Blood Urea Nitrogen 22 mg/dL (7-17); Calcium 9.7 mg/dL (8.4-10.2); Carbon Dioxide 27 mmol/L (22-30); Chloride 101 mmol/L (98-107); Estimated CRCL calculation 50 ml/min; Estimated Glomerular Filt Rate > 60; Glucose 134 mg/dL (65-110); Magnesium 1.5 mg/dL (1.6-2.3); Potassium 2.9 mmol/L (3.4-5.0); Sodium 135 mmol/L (137-145)
--- NOTE | 2023-02-08 08:20 | PM.IMPN ---
Progress Note: A&P Assessment and Plan (1) Fracture, intertrochanteric, left femur: Code(s): S72.142A - Displaced intertrochanteric fracture of left femur, initial encounter for closed fracture Status: Acute Assessment and Plan: Appreciate orthopedic consultation, going to the OR soon pain control (2) Adult hypothyroidism: Code(s): E03.9 - Hypothyroidism, unspecified Status: Acute Assessment and Plan: Continue home levothyroxine, check TSH (3) Benign essential hypertension: Code(s): I10 - Essential (primary) hypertension Status: Acute Assessment and Plan: Blood pressure reviewed 02/08 (4) Hypokalemia: Code(s): E87.6 - Hypokalemia Status: Acute Assessment and Plan: Replete and recheck, monitor Hold hydrochlorothiazide (5) Hypomagnesemia: Code(s): E83.42 - Hypomagnesemia Status: Inactive Assessment and Plan: Still quite low, replace and recheck (6) Gastric ulcer: Code(s): K25.9 - Gastric ulcer, unspecified as acute or chronic, without hemorrhage or perforation Status: Acute Assessment and Plan: Continue nexium/carafate Plan Diet: NPO after midnight. Activity: Bedrest. Analgesia: Morphine, apap. VTE prophylaxis: Defer pending surgery. Ulcer prophylaxis: PPI Disposition: Expect 24-48 hours of further management. Subjective Date/time seen: 02/08/23 08:20 Interval history: 78 year old female with PMH of HTN, gastric ulcer, and right ankle osteomyelitis who presents after a fall from home is currently being treated for left femur fracture. No overnight events noted. No chest pain or shortness of breath. No nausea, vomiting or diarrhea. No fevers or chills. Complaining of foot and leg pain. Review of Systems Review of Systems: 12 point review of systems was assessed and was negative except as noted in the HPI Exam Narrative: General: No acute distress, alert and oriented per baseline HEENT: Atraumatic, normocephalic, mucous membranes moist CV: Regular rate and rhythm, S1, S2 Lungs: Clear to auscultation bilaterally, no rales or crackles noted, no wheezes, good air entry Abdomen: Soft, nontender, nondistended Extremities: Normal to inspection Skin: No rashes noted, no lesions or wounds seen Psych: Euthymic, normal affect Objective Data Vital Signs Vital Signs: Vital Signs - 24 hr 02/07/23 08:43 02/07/23 11:19 02/07/23 14:13 Temperature Pulse Rate 84 59 L 58 L Respiratory Rate 16 17 17 Blood Pressure 112/68 112/69 111/71 Pulse Oximetry 98 99 95 Oxygen Delivery 02/07/23 15:21 02/07/23 14:45 02/07/23 20:09 Temperature 98.6 F 97.8 F Pulse Rate 58 L 71 Respiratory Rate 12 18 Blood Pressure 98/86 L 124/67 Pulse Oximetry 99 97 Oxygen Delivery Room Air 02/07/23 20:00 02/08/23 05:51 Temperature 97.0 F L Pulse Rate 63 Respiratory Rate 16 Blood Pressure 115/56 L Pulse Oximetry 97 97 Oxygen Delivery Room Air Intake/Output Intake/Output: Intake & Output 02/05/23 02/06/23 02/07/23 02/08/23 23:59 23:59 23:59 23:59 Intake Total 50 Output Total 750 700 Balance -700 -700 Meds/Results Medications: Active Medications Generic Name Dose Route Start Last Admin Trade Name Freq PRN Reason Stop Dose Admin Acetaminophen 650 mg 02/07/23 15:55 Acetaminophen 325 Mg Tablet PO Q4H PRN Mild Pain (1-3) Amlodipine Besylate 5 mg 02/08/23 09:00 Amlodipine Besylate 5 Mg Tablet PO DAILY [facility] Artificial Tears 1 drop 02/07/23 17:00 02/08/23 05:41 Artificial Tears Ophth Soln 15 Ml Bottle EACH EYE Not Given QID [facility] Carvedilol 12.5 mg 02/07/23 21:00 02/07/23 21:37 Carvedilol 12.5 Mg Tablet PO 12.5 mg Q12H LINA Administration Fluticasone Propionate 2 spray 02/08/23 09:00 Fluticasone Propionate 0.05% Na Spr 16 Gm Btl (*Bkc) NASAL DAILY [facility] Hydromorpho
[2023-02-08] MEDS: MAGNESIUM SULFATE 3GM/D5W100ML 3 GM/100 ML BAG IVPB (09:06)
[2023-02-08] MEDS: POTASSIUM CHLORIDE INJ 40 MEQ in SODIUM CHLORIDE 0.9% IV 500 ML 130 MEQ IVPB (10:10)
[2023-02-08] MEDS: POTASSIUM CHLORIDE 20 MEQ ER TABLET 80 MEQ PO (10:12)
[2023-02-08] MEDS: VENLAFAXINE HCL XR 75 MG CAP.ER.24H 150 MG PO (10:12)
[2023-02-08] MEDS: carvediloL 12.5 MG TABLET PO ×2 (10:13→22:48)
[2023-02-08] MEDS: amLODIPine BESYLATE 5 MG TABLET PO (10:13)
[2023-02-08] MEDS: PANTOPRAZOLE 40 MG TABLET PO (10:13)
[2023-02-08] MEDS: SULFAMETHOXAZOLE/TRIMETHOPRIM 800/160 MG DS TABLET 1 TAB PO ×2 (10:13→22:48)
[2023-02-08] MEDS: SILVER SULFADIAZINE 1% CR 400 GM JAR (*BKC) 1 APPLIC TOPICAL (10:15)
[2023-02-08] MEDS: FLUTICASONE PROPIONATE 0.05% NA SPR 16 GM BTL (*BKC) 2 SPRAY NASAL (12:43)
[2023-02-08] MEDS: ARTIFICIAL TEARS OPHTH SOLN 15 ML BOTTLE 1 DROP EACH EYE (12:43)
[2023-02-08 14:31] LABS: Potassium 4.2 mmol/L (3.4-5.0)
[2023-02-08 14:34] LABS: Magnesium 2.1 mg/dL (1.6-2.3)
--- NOTE | 2023-02-08 14:50 | WPDHPUPDATE1 ---
History and Physical Update Update Date/Time: 02/08/23 14:50 History and Physical has been reviewed, including an updated exam of the patient. There are NO changes in the patient's condition. Risks, benefits, and alternatives have been discussed and questions answered. Patient agrees to proceed with procedure.
--- NOTE | 2023-02-08 14:57 | WPDHPUPDATE1 ---
History and Physical Update Update Date/Time: 02/08/23 14:57 History and Physical has been reviewed, including an updated exam of the patient. There are NO changes in the patient's condition. Risks, benefits, and alternatives have been discussed and questions answered. Patient agrees to proceed with procedure.
--- NOTE | 2023-02-08 15:00 | WPDANESEPPF ---
Anes - Initial Pre Proc Eval Procedure: Operation Date: 02/08/23 15:00 Proposed Procedures p Left Intertrochanteric Nail - Venu Barnes MD Date/Time: 02/08/23 15:00 Surgeon: Niya Diaz MD Pre Op Diagnosis: L IT FX Patient Data Age: 78 Gender: F Height: 1.57 m Weight: 48.7 kg Last Vital Signs Temp 36.1 C L 02/08/23 05:51 Pulse 64 02/08/23 10:13 Resp 16 02/08/23 05:51 BP 115/56 L 02/08/23 05:51 Pulse Ox 97 02/08/23 05:51 O2 Del Method Room Air 02/07/23 20:00 Allergies Allergy/AdvReac Type Severity Reaction Status Date / Time doxycycline Allergy Unknown Difficulty Verified 02/16/22 14:42 Breathing Penicillins Allergy Unknown Rash Verified 02/16/22 14:42 prednisone Allergy Unknown Difficulty Verified 02/16/22 14:42 Breathing Home Medications Medication Instructions Recorded Confirmed Type silver sulfadiazine 1 % topical 1 applic topical DAILY #25 grams 10/10/21 02/07/23 Rx cream (Silvadene) lorazepam 0.5 mg tablet 0.5 mg PO TID PRN anxiety #90 tabs 01/12/22 02/07/23 Rx cyanocobalamin (vitamin B-12) 1,000 mcg PO DAILY 02/09/22 02/07/23 History 1,000 mcg capsule multivitamin 1 tablet PO DAILY 02/09/22 02/07/23 History fluticasone propionate 50 2 spray intranasal DAILY #15.8 mL 02/19/22 02/07/23 Rx mcg/actuation nasal spray,suspension (Allergy Relief (fluticasone)) losartan 100 1 tablet PO DAILY #90 tabs 02/19/22 02/07/23 Rx mg-hydrochlorothiazide 25 mg tablet levothyroxine 50 mcg tablet 50 mcg PO DAILY #90 tabs 03/10/22 02/07/23 Rx potassium chloride 10 mEq 10 meq PO DAILY #7 tabs 03/24/22 02/07/23 Rx tablet,extended release amlodipine 5 mg tablet 5 mg PO DAILY 02/07/23 02/07/23 History biotin 1,000 mcg chewable tablet 1,000 mcg PO DAILY 02/07/23 02/07/23 History calcium citrate 500 mg PO DAILY 02/07/23 02/07/23 History carvedilol 12.5 mg tablet 12.5 mg PO Q12H 02/07/23 02/07/23 History cholecalciferol (vitamin D3) 125 125 mcg PO DAILY 02/07/23 02/07/23 History mcg (5,000 unit) tablet (Vitamin D3) esomeprazole magnesium 40 mg 40 mg PO DAILY 02/07/23 02/07/23 History capsule,delayed release ferrous sulfate 325 mg (65 mg 325 mg PO DAILY 02/07/23 02/07/23 History iron) tablet multivitamin 1 tablet PO DAILY 02/07/23 02/07/23 History propylene glycol (PF) 0.6 % eye 1 drp ophthalmic (eye) QID 02/07/23 02/07/23 History drops (Systane Complete PF) sucralfate 1 gram tablet 1 g PO TID 02/07/23 02/07/23 History sulfamethoxazole 800 1 tablet Q12H 02/07/23 02/07/23 History mg-trimethoprim 160 mg tablet venlafaxine 150 mg 150 mg PO DAILY 02/07/23 02/07/23 History capsule,extended release 24 hr Laboratory Tests 02/08/23 02/08/23 06:57 14:18 WBC 12.4 H K/mm3 (4.5-10.0) RBC 3.62 L M/mm3 (4.2-5.4) Hgb 11.8 L g/dL (12.0-15.0) Hct 35.8 L % (37.0-47.0) MCV 98.9 fl (80-100) MCH 32.6 pg (26-34) MCHC 33.0 g/dl (32-36) RDW 13.9 % (11.5-14.5) Plt Count 255 k/mm3 (150-375) MPV 10.4 fl (7.4-10.4) Sodium 135 L mmol/L (137-145) Potassium 2.9 L mmol/L 4.2 mmol/L (3.4-5.0) (3.4-5.0) Chloride 101 mmol/L (98-107) Carbon Dioxide 27 mmol/L (22-30) Anion Gap 7 L mmol/L (8-16) BUN 22 H mg/dL (7-17) Creatinine 0.60 L mg/dL (0.7-1.0) Estim Creat Clear Calc 50 ml/min Estimated GFR > 60 (59 - ) Glucose 134 H mg/dL (65-110) Calcium 9.7 mg/dL (8.4-10.2) Magnesium 1.5 L mg/dL 2.1 mg/dL (1.6-2.3) (1.6-2.3) Total Bilirubin 0.5 mg/dL (0.2-1.3) AST 35 U/L (14-36) ALT 23 U/L (6-35) Alkaline Phosphatase 55 U/L (38-126) Total Protein 7.0 g/dL (6.3-8.2) Albumin 3.9 g/dL (3.5-5.1) Patient hx anesthesia problems: none Family hx anesthesia problems: none Results Review: All pre-operative results and do
[2023-02-08] MEDS: ACETAMINOPHEN 500 MG TABLET 1000 MG PO (15:21)
--- NOTE | 2023-02-08 15:36 | SUR.PREOP ---
1535-surgery delayed undetermined amount of time, pt and family made aware and pt relocated to OP room and report given to Erick Kerns RN.
[2023-02-08] MEDS: TRANEXAMIC ACID 1,000MG/ISO100 1,000 MG/100 ML BAG 200 MG IVPB (18:30)
[2023-02-08] MEDS: ceFAZolin 2 GM/D5W 50 ML 2 GM/50 ML BAG IVPB ×2 (18:40→22:42)
[2023-02-08] MEDS: LACTATED RINGERS 1,000 ML 30 ML IV CONT (19:32)
--- NOTE | 2023-02-08 19:33 | P.OP_ITS ---
Procedure Note - Detailed Date of Procedure 02/08/23 Pre-op Diagnosis L INTERTROCHANTERIC FEMUR FRACTURE FX Post-op Diagnosis Same Procedure Performed INSERTION GAMMA TRISTAN LEFT HIP Surgeon Venu Barnes MD Anesthesia General Description of Procedure THE PATIENT WAS TAKEN TO THE OPERATING ROOM AND PLACED ON A FRACTURE TABLE AFTER GIVEN GENERAL ANESTHESIA. THE LEFT LOWER EXTREMITY WAS PLACED IN A TRACTION BOOT AND USING SOME TRACTION AND INTERNAL ROTATION THE INNER TROCHANTERIC FRACTURE WAS REDUCED TO ANATOMIC POSITION. NEXT THE LEFT LOWER EXTREMITY WAS PREPPED AND DRAPED IN THE STERILE FASHION. AN INCISION WAS MADE PROXIMAL TO THE TIP OF THE GREATER TROCHANTER AND DISSECTION CONTINUED TILL THE TIP OF THE GREATER TROCHANTER WAS PALPATED. A GUIDE PIN WAS PLACED DOWN THE FEMORAL CANAL AND PAST THE FRACTURE SITE. THIS WAS CHECKED ON FLUOROSCOPY AND FOUND TO BE IN GOOD POSITION. AN INITIAL REAMER WAS USED TO REAM THE FEMORAL CANAL. A 11 BY 200 MM ARTHREX TRISTAN WAS INSERTED TILL THE CORRECT POSITION WAS IDENTIFIED ON XRAY. A GUIDE PIN WAS INSERTED THROUGH THE FEMORAL NECK AT 130 DEG ANGLE TILL I T REACHED THE TIP OF THE SUB CHONDRAL BONE SEEN ON XRAY. AFTER REAMING, LAG SCREW WAS INSERTED MEASURING 90 MM. XRAYS SHOWED IT TO BE IN GOOD POSITION. THE LAG SCREW WAS LOCKED PROXIMALLY. NEXT A DISTAL LOCKING SCREW WAS PLACED ACROSS THE TRISTAN AND WAS IN GOOD POSITION ON XRAY. THE TRACTION WAS RELEASED. THE WOUNDS WERE WASHED. THE DEEP FASCIA WAS REPAIRED WITH 0 VICRYL SUTURE, THE SUB CUTANEOUS LAYER WITH 2-0 VICRYL, AND THE SKIN WITH SHANDA. THE WOUNDS WERE WASHED AND THEN STERILE DRESSING WAS APPLIED. PATIENT WAS EXTUBATED AND SENT TO RECOVERY ROOM. Estimated Blood Loss 100 Urine Output 300 Complications No immediate complications Condition Stable Disposition PACU
[2023-02-08] MEDS: fentaNYL CITRATE INJ (*CRX) 100 MCG/2 ML VIAL 25 MCG IV PUSH (19:45)
[2023-02-08] MEDS: SODIUM CHLORIDE 0.9% IV 1,000 ML 125 ML IV CONT (22:37)
[2023-02-08] MEDS: diazePAM (*CRX) 5 MG TABLET PO (22:47)
[2023-02-08] MEDS: HYDROcodone/acetaminophen (*CRX) 5-325 MG TABLET 1 TAB PO (22:48)
[2023-02-08] MEDS: FAMOTIDINE 20 MG TABLET PO (22:48)
[2023-02-09] VITALS (8 sets, daily range): BP systolic 99–125; BP diastolic 48–74; PULSE 54–70; RESP 14–16; TEMP 35.8–37; O2SAT 92–99
[2023-02-09] MEDS: LEVOTHYROXINE SODIUM 50 MCG TABLET PO (06:19)
[2023-02-09] MEDS: SODIUM CHLORIDE 0.9% IV 1,000 ML 125 ML IV CONT ×2 (06:20→14:18)
[2023-02-09] MEDS: ceFAZolin 2 GM/D5W 50 ML 2 GM/50 ML BAG IVPB ×2 (06:22→14:18)
[2023-02-09 06:39] LABS: Basophils Percent Auto 0.4 % (0.2-1.2); Eosinophils Absolute Auto 0.1 K/mm3 (0-0.3); Eosinophils Percent Auto 0.7 % (0-4.4); Hematocrit 30.3 % (37.0-47.0); Hemoglobin 9.7 g/dL (12.0-15.0); Immature Granulocyte Absolute 0.05 K/mm3 (0.00-0.031); Immature Granulocyte Percent A 0.4 % (0-0.5); Lymphocytes Absolute Auto 0.99 K/mm3 (0.9-3.2); Lymphocytes Percent Auto 8.8 % (18.3-44.2); Mean Corpuscular Hemoglobin 32.8 pg (26-34); Mean Corpuscular Volume 102.4 fl (80-100); Mean Platelet Volume 10.3 fl (7.4-10.4); Monocytes Absolute Auto 1.4 K/mm3 (0.1-0.6); Monocytes Percent Auto 12.3 % (2.6-8.5); Neutrophils Absolute Auto 8.7 K/mm3 (1.3-6.7); Neutrophils Percent Auto 77.4 % (45.5-73.1); Platelet Count Result 219 k/mm3 (150-375); Red Blood Count 2.96 M/mm3 (4.2-5.4); Red Cell Distribution Width 14.3 % (11.5-14.5); White Blood Count 11.2 K/mm3 (4.5-10.0)
[2023-02-09 06:58] LABS: Alanine Aminotransferase 19 U/L (6-35); Albumin Level 3.2 g/dL (3.5-5.1); Alkaline Phosphatase 49 U/L (38-126); Anion Gap 9 mmol/L (8-16); Aspartate Amino Transferase 34 U/L (14-36); Bilirubin,Total 0.4 mg/dL (0.2-1.3); Blood Urea Nitrogen 17 mg/dL (7-17); Calcium 8.9 mg/dL (8.4-10.2); Carbon Dioxide 19 mmol/L (22-30); Chloride 107 mmol/L (98-107); Estimated CRCL calculation 59 ml/min; Estimated Glomerular Filt Rate > 60; Glucose 112 mg/dL (65-110); Potassium 3.2 mmol/L (3.4-5.0); Sodium 135 mmol/L (137-145)
[2023-02-09] MEDS: FLUTICASONE PROPIONATE 0.05% NA SPR 16 GM BTL (*BKC) 2 SPRAY NASAL (09:10)
[2023-02-09] MEDS: VENLAFAXINE HCL XR 75 MG CAP.ER.24H 150 MG PO (09:10)
[2023-02-09] MEDS: SUCRALFATE 1 GM TABLET PO ×3 (09:10→17:08)
[2023-02-09] MEDS: SULFAMETHOXAZOLE/TRIMETHOPRIM 800/160 MG DS TABLET 1 TAB PO ×2 (09:10→21:11)
[2023-02-09] MEDS: ENOXAPARIN 40 MG/0.4 ML SYRINGE SUB-Q (09:10)
[2023-02-09] MEDS: ARTIFICIAL TEARS OPHTH SOLN 15 ML BOTTLE 1 DROP EACH EYE ×4 (09:10→21:14)
[2023-02-09] MEDS: CHOLECALCIFEROL 1,000 UNITS TABLET 5000 UNITS PO (09:11)
[2023-02-09] MEDS: polyethylene glycoL 3350 17 GM POWD.PACK PO (09:11)
[2023-02-09] MEDS: FAMOTIDINE 20 MG TABLET PO ×2 (09:12→21:11)
[2023-02-09] MEDS: amLODIPine BESYLATE 5 MG TABLET PO (09:12)
[2023-02-09] MEDS: LOSARTAN POTASSIUM 100 MG TABLET PO (09:12)
[2023-02-09] MEDS: CYANOCOBALAMIN 1,000 MCG TABLET 1000 MCG PO (09:12)
[2023-02-09] MEDS: CELECOXIB 200 MG CAPSULE PO (09:12)
[2023-02-09] MEDS: SENNA/DOCUSATE SODIUM TABLET 2 TAB PO ×2 (09:12→17:08)
[2023-02-09] MEDS: hydroCHLOROthiazide 25 MG TABLET PO (09:13)
[2023-02-09] MEDS: carvediloL 12.5 MG TABLET PO (09:13)
[2023-02-09] MEDS: POTASSIUM CHLORIDE 10 MEQ ER TABLET PO (09:13)
[2023-02-09] MEDS: PANTOPRAZOLE 40 MG TABLET PO (09:13)
[2023-02-09] MEDS: FERROUS SULFATE 325 MG TABLET DR PO (09:13)
[2023-02-09] MEDS: MULTIVITAMINS THERAPEUTIC TAB (*BKC) 1 TABLET PO (09:14)
[2023-02-09] MEDS: SILVER SULFADIAZINE 1% CR 400 GM JAR (*BKC) 1 APPLIC TOPICAL (09:15)
--- NOTE | 2023-02-09 09:44 | PM.PNORT ---
Progress Note: A&P Assessment and Plan (1) Fracture, intertrochanteric, left femur: Qualifiers: Encounter type: initial encounter Fracture alignment: displaced Fracture type: closed Qualified Code(s): S72.142A - Displaced intertrochanteric fracture of left femur, initial encounter for closed fracture Code(s): S72.142A - Displaced intertrochanteric fracture of left femur, initial encounter for closed fracture Status: Acute Assessment and Plan: POD #1 : INSERTION GAMMA TRISTAN LEFT HIP Continue PT/OT. WBAT. Walker. HIGH FALL RISK. Continue pain control. Ice hip. Protect skin. DVT prophylaxis with Lovenox. SCDs. Incentive Spirometry Use reviewed. Monitor Dressing. Change prior to discharge. Bowel Regimen. Dispo: SNF pending progress with PT/OT and medical clearance. Subjective Subjective Date/Time Seen: 02/09/23 09:44 Post Op day: 1 Interval history: POD #1: INSERTION GAMMA TRISTAN LEFT HIP Patient sitting up in chair. A&Ox1-2. Worked with PT this AM. Complains of pain right hip. Review of Systems Review of Systems: ROS unobtainable: Yes unobtainable due to mental status Exam Const: General: comfortable Resp: Effort & Inspection: normal respiratory effort Cardio: Rate: regular rate Rhythm: regular rhythm GI: Inspection: non-distended Urinary Catheter: Urinary Catheter: patent and draining and urine clear Skin: General skin exam: normal color Other: Incision right hip c/d/i. Surrounding tissue without redness/warmth. Mild swelling consistent with recent surgery. No drainage. Neuro: Speech: normal speech Extrem: Right lower extremity: normal to inspection, normal capillary refill, hip/thigh Details: tenderness Location: of the hip (Thigh soft ) Location: laterally and anteriorly, swelling Location: at the hip, abnormal ROM (limited consistent with recent surgery ) Details: pain with active ROM during and pain with passive ROM during and other (Incision c/d/i. ); no deformity and no unusual warmth, knee Details: normal to inspection; no tenderness and no swelling, lower leg (Negative Laureen's Sign ) Details: normal to inspection and no edema; no tenderness, ankle (+ankle dorsiflexion/plantarflexion) Details: normal to inspection and no edema; no tenderness, no swelling and no ecchymosis and foot Details: normal capillary refill, toes with normal ROM, vascular exam Details: dorsalis pedis pulse present and motor-sensory exam Details: light-touch normal; no tenderness Objective Data Vital Signs Vital Signs: Vital Signs - 24 hr 02/08/23 10:13 02/08/23 14:54 02/08/23 10:00 Temperature 36.7 C Pulse Rate 64 88 Respiratory Rate 16 Blood Pressure 123/59 L Pulse Oximetry 99 Oxygen Delivery Room Air Room Air Oxygen Flow Rate 02/08/23 19:32 02/08/23 19:45 02/08/23 20:00 Temperature 36.4 C L Pulse Rate 87 78 74 Respiratory Rate 12 12 12 Blood Pressure 142/81 H 129/70 119/65 Pulse Oximetry 100 98 95 Oxygen Delivery Simple Face Mask Simple Face Mask Nasal Cannula Oxygen Flow Rate 8 8 2 02/08/23 20:15 02/08/23 20:31 02/08/23 20:45 Temperature Pulse Rate 75 74 70 Respiratory Rate 12 14 14 Blood Pressure 113/70 100/61 111/60 Pulse Oximetry 95 97 99 Oxygen Delivery Nasal Cannula Nasal Cannula Nasal Cannula Oxygen Flow Rate 2 2 2 02/08/23 21:05 02/08/23 21:20 02/08/23 21:50 Temperature 37.6 C 36.9 C 36.7 C Pulse Rate 75 70 70 Respiratory Rate 14 16 14 Blood Pressure 118/62 117/65 106/56 L Pulse Oximetry 99 100 98 Oxygen Delivery Oxygen Flow Rate 02/08/23 22:50 02/08/23 21:00 02/09/23 03:59 Temperature 36.3 C L 36.7 C Pulse Rate 81 70 Respiratory Rate 16 16 Blood Pressure 100/73 101/61 Pulse Oximetry 97 97 93 Oxygen Delivery Room Air Oxygen Flow Rate 02/09/23 08:00 02/09/23 08:36 02/09/23 09:13 Temperature 37.0 C Pulse Rate 68 66 Respiratory Rate 14 Blood Pressure 125/74 Pulse Oximetry 99 Oxygen Deliv
--- NOTE | 2023-02-09 09:51 | PCOTNOTE ---
Patient with physical therapy upon arrival and requesting breakfast tray once she was moved to chair at 9:10 a.m. Nursing aware and OT will return. Following
--- NOTE | 2023-02-09 10:52 | PM.IMPN ---
Progress Note: A&P Assessment and Plan (1) Fracture, intertrochanteric, left femur: Code(s): S72.142A - Displaced intertrochanteric fracture of left femur, initial encounter for closed fracture Status: Acute Assessment and Plan: Appreciate orthopedic consultation, OR 02/08 for left intertrochanteric femur fracture and insertion of gamma marek on the left hip Pain controlled (2) Adult hypothyroidism: Code(s): E03.9 - Hypothyroidism, unspecified Status: Acute Assessment and Plan: Continue home levothyroxine, TSH wnl (3) Benign essential hypertension: Code(s): I10 - Essential (primary) hypertension Status: Acute Assessment and Plan: Blood pressure reviewed 02/09 (4) Hypokalemia: Code(s): E87.6 - Hypokalemia Status: Acute Assessment and Plan: Replete and recheck, monitor Hold hydrochlorothiazide, restart when better po (5) Hypomagnesemia: Code(s): E83.42 - Hypomagnesemia Status: Inactive Assessment and Plan: Still quite low, replace and recheck (6) Gastric ulcer: Code(s): K25.9 - Gastric ulcer, unspecified as acute or chronic, without hemorrhage or perforation Status: Acute Assessment and Plan: Continue nexium/carafate Plan Diet: regular diet Activity: per surgery Analgesia: Morphine, apap VTE prophylaxis: Defer pending surgery. Ulcer prophylaxis: PPI Disposition: Expect 24-48 hours of further management Subjective Date/time seen: 02/09/23 10:52 Interval history: 78 year old female with PMH of HTN, gastric ulcer, and right ankle osteomyelitis who presents after a fall from home is currently being treated for left femur fracture, taken to the OR 02/08 for left intertrochanteric femur fracture fixation. No overnight events noted. No chest pain or shortness of breath. No nausea, vomiting or diarrhea. No fevers or chills. Postop day 1. No flatus, no bowel movement. Poor p.o. intake. Review of Systems Review of Systems: 12 point review of systems was assessed and was negative except as noted in the HPI Exam Narrative: General: No acute distress, alert and oriented per baseline HEENT: Atraumatic, normocephalic, mucous membranes moist CV: Regular rate and rhythm, S1, S2 Lungs: Clear to auscultation bilaterally, no rales or crackles noted, no wheezes, good air entry Abdomen: Soft, nontender, nondistended Extremities: Normal to inspection Skin: No rashes noted, no lesions or wounds seen Psych: Euthymic, normal affect Objective Data Vital Signs Vital Signs: Vital Signs - 24 hr 02/08/23 14:54 02/08/23 19:32 02/08/23 19:45 Temperature 98.0 F 97.5 F L Pulse Rate 88 87 78 Respiratory Rate 16 12 12 Blood Pressure 123/59 L 142/81 H 129/70 Pulse Oximetry 99 100 98 Oxygen Delivery Room Air Simple Face Mask Simple Face Mask Oxygen Flow Rate 8 8 02/08/23 20:00 02/08/23 20:15 02/08/23 20:31 Temperature Pulse Rate 74 75 74 Respiratory Rate 12 12 14 Blood Pressure 119/65 113/70 100/61 Pulse Oximetry 95 95 97 Oxygen Delivery Nasal Cannula Nasal Cannula Nasal Cannula Oxygen Flow Rate 2 2 2 02/08/23 20:45 02/08/23 21:05 02/08/23 21:20 Temperature 99.6 F 98.4 F Pulse Rate 70 75 70 Respiratory Rate 14 14 16 Blood Pressure 111/60 118/62 117/65 Pulse Oximetry 99 99 100 Oxygen Delivery Nasal Cannula Oxygen Flow Rate 2 02/08/23 21:50 02/08/23 22:50 02/08/23 21:00 Temperature 98.1 F 97.3 F L Pulse Rate 70 81 Respiratory Rate 14 16 Blood Pressure 106/56 L 100/73 Pulse Oximetry 98 97 97 Oxygen Delivery Room Air Oxygen Flow Rate 02/09/23 03:59 02/09/23 08:00 02/09/23 08:36 Temperature 98.1 F 98.6 F Pulse Rate 70 68 Respiratory Rate 16 14 Blood Pressure 101/61 125/74 Pulse Oximetry 93 99 Oxygen Delivery Room Air Oxygen Flow Rate 02/09/23 09:13 02/09/23 09:10 Temperature Pulse Rate 66 66 Respirato
--- NOTE | 2023-02-09 11:53 | PC.NURSE ---
Addendum entered by Morenita Castillo RN 02/09/23 17:14: Pt has been compliant with care. Pt is much more comfortable since getting pain medication for pain. Pt had family at bedside throughout day. Will continue to monitor pt. Original Note: Pt is A&O1 female. Pt is unable to participate or contribute in plan of care. Pt denied any pain at time of assessment. Pt required assistance with eating. Pt has previous humerus fracture in addition to hip fracture. Pt is post-op day 1. Pt up with therapy today. Pt will continue to be monitored for any changes in status.
[2023-02-09] MEDS: POTASSIUM CHLORIDE 20 MEQ ER TABLET 80 MEQ PO (13:34)
[2023-02-09] MEDS: diazePAM (*CRX) 5 MG TABLET PO (14:26)
[2023-02-09] MEDS: HYDROcodone/acetaminophen (*CRX) 5-325 MG TABLET 1 TAB PO (14:26)
[2023-02-09] MEDS: LORazepam (*CRX) 0.5 MG TABLET PO (21:11)
[2023-02-10 04:23] VITALS: BP 130/64; PULSE 63; RESP 16; TEMP 36.3; O2SAT 95
[2023-02-10] MEDS: LEVOTHYROXINE SODIUM 50 MCG TABLET PO (05:31)
[2023-02-10 06:40] LABS: Basophils Absolute Auto 0.1 K/mm3 (0.0-0.1); Basophils Percent Auto 0.5 % (0.2-1.2); Eosinophils Absolute Auto 0.2 K/mm3 (0-0.3); Eosinophils Percent Auto 1.5 % (0-4.4); Hematocrit 29.1 % (37.0-47.0); Hemoglobin 9.5 g/dL (12.0-15.0); Immature Granulocyte Absolute 0.06 K/mm3 (0.00-0.031); Immature Granulocyte Percent A 0.5 % (0-0.5); Lymphocytes Absolute Auto 0.77 K/mm3 (0.9-3.2); Lymphocytes Percent Auto 6.3 % (18.3-44.2); Mean Corpuscular HGB Conc 32.6 g/dl (32-36); Mean Corpuscular Hemoglobin 32.3 pg (26-34); Mean Platelet Volume 10.5 fl (7.4-10.4); Monocytes Absolute Auto 1.4 K/mm3 (0.1-0.6); Neutrophils Absolute Auto 9.9 K/mm3 (1.3-6.7); Neutrophils Percent Auto 80.2 % (45.5-73.1); Platelet Count Result 227 k/mm3 (150-375); Red Blood Count 2.94 M/mm3 (4.2-5.4); Red Cell Distribution Width 14.3 % (11.5-14.5); White Blood Count 12.3 K/mm3 (4.5-10.0)
[2023-02-10 07:03] LABS: Alanine Aminotransferase 18 U/L (6-35); Albumin Level 3.4 g/dL (3.5-5.1); Alkaline Phosphatase 49 U/L (38-126); Anion Gap 9 mmol/L (8-16); Aspartate Amino Transferase 46 U/L (14-36); Bilirubin,Total 0.4 mg/dL (0.2-1.3); Blood Urea Nitrogen 19 mg/dL (7-17); Calcium 9.6 mg/dL (8.4-10.2); Carbon Dioxide 22 mmol/L (22-30); Chloride 106 mmol/L (98-107); Estimated CRCL calculation 50 ml/min; Estimated Glomerular Filt Rate > 60; Glucose 116 mg/dL (65-110); Potassium 3.7 mmol/L (3.4-5.0); Sodium 137 mmol/L (137-145)
[2023-02-10 09:00] VITALS: O2SAT 94
[2023-02-10] MEDS: CELECOXIB 200 MG CAPSULE PO (09:51)
[2023-02-10] MEDS: hydroCHLOROthiazide 25 MG TABLET PO (09:51)
[2023-02-10] MEDS: SENNA/DOCUSATE SODIUM TABLET 2 TAB PO ×2 (09:51→17:03)
[2023-02-10] MEDS: LOSARTAN POTASSIUM 100 MG TABLET PO (09:51)
[2023-02-10 09:52] VITALS: PULSE 78
[2023-02-10] MEDS: polyethylene glycoL 3350 17 GM POWD.PACK PO (09:52)
[2023-02-10] MEDS: FAMOTIDINE 20 MG TABLET PO (09:52)
[2023-02-10] MEDS: CYANOCOBALAMIN 1,000 MCG TABLET 1000 MCG PO (09:52)
[2023-02-10] MEDS: carvediloL 12.5 MG TABLET PO ×2 (09:52→20:02)
[2023-02-10] MEDS: PANTOPRAZOLE 40 MG TABLET PO (09:52)
[2023-02-10] MEDS: CHOLECALCIFEROL 1,000 UNITS TABLET 5000 UNITS PO (09:52)
[2023-02-10] MEDS: MULTIVITAMINS THERAPEUTIC TAB (*BKC) 1 TABLET PO (09:52)
[2023-02-10] MEDS: amLODIPine BESYLATE 5 MG TABLET PO (09:52)
[2023-02-10] MEDS: POTASSIUM CHLORIDE 10 MEQ ER TABLET PO (09:52)
[2023-02-10] MEDS: SUCRALFATE 1 GM TABLET PO ×3 (09:53→17:03)
[2023-02-10] MEDS: VENLAFAXINE HCL XR 75 MG CAP.ER.24H 150 MG PO (09:53)
[2023-02-10] MEDS: SULFAMETHOXAZOLE/TRIMETHOPRIM 800/160 MG DS TABLET 1 TAB PO ×2 (09:53→20:02)
[2023-02-10] MEDS: FERROUS SULFATE 325 MG TABLET DR PO (09:53)
[2023-02-10] MEDS: ENOXAPARIN 40 MG/0.4 ML SYRINGE SUB-Q (09:54)
[2023-02-10] MEDS: SILVER SULFADIAZINE 1% CR 400 GM JAR (*BKC) 1 APPLIC TOPICAL (09:54)
--- NOTE | 2023-02-10 10:21 | PM.IMPN ---
Progress Note: A&P Assessment and Plan (1) Fracture, intertrochanteric, left femur: Qualifiers: Encounter type: initial encounter Fracture type: closed Fracture alignment: displaced Qualified Code(s): S72.142A - Displaced intertrochanteric fracture of left femur, initial encounter for closed fracture Code(s): S72.142A - Displaced intertrochanteric fracture of left femur, initial encounter for closed fracture Status: Acute Assessment and Plan: Patient presents with complaints of hip pain after a fall at home. X-ray shows intratrochanteric fracture of the proximal. Orthopedics was consulted and patient was taken to the OR on 02/08/2023 and underwent insertion of gamma marek to the the left hip. Pain tolerable. She is confused which could be related to narcotics. Appreciate Orthopedics input. Continue PT and OT. (2) Confusion: Code(s): R41.0 - Disorientation, unspecified Status: Acute Assessment and Plan: Patient was not confused on admission. No focal weakness. She received lorazepam last night. Confusion could be a combination of benzodiazepines and narcotics. White count is increased today so consider infectious process. Will check chest x-ray and UA. Check CT of the head to exclude acute CVA. Increase activity level. Minimize disruptions at night. (3) Adult hypothyroidism: Code(s): E03.9 - Hypothyroidism, unspecified Status: Acute Assessment and Plan: TSH normal. Continue levothyroxine. (4) Benign essential hypertension: Code(s): I10 - Essential (primary) hypertension Status: Acute Assessment and Plan: Patient's blood pressure was reviewed on 02/10 Blood pressure remains well controlled but occasionally soft at times.. Will continue to monitor. Will hold HCTZ and Norvasc. (5) Hypokalemia: Code(s): E87.6 - Hypokalemia Status: Acute Assessment and Plan: Potassium 2.8 on admission. Probably related to hydrochlorothiazide. Potassium has been replaced and is now normal. Hold HCTZ (6) Hypomagnesemia: Code(s): E83.42 - Hypomagnesemia Status: Inactive Assessment and Plan: Magnesium was low on admission. This has been replaced. Follow periodically. (7) Gastric ulcer: Code(s): K25.9 - Gastric ulcer, unspecified as acute or chronic, without hemorrhage or perforation Status: Acute Assessment and Plan: Stable. Continue proton pump inhibitor and Carafate. Will stop Pepcid. Plan Osteomyelitis Rt ankle - on Bactrim Diet: regular diet Activity: per surgery Analgesia: Morphine, apap VTE prophylaxis: Lovenox Ulcer prophylaxis: PPI Disposition: Expect 24-48 hours of further management Subjective Date/time seen: 02/10/23 10:21 Interval history: 78yo female with HTN, gastric ulcer, and right ankle osteomyelitis who presents after a fall from home is currently being treated for left femur fracture, taken to the OR 02/08 for left intertrochanteric femur fracture fixation. Assuming care. Chart reviewed. Patient states her pain is ?okay?. She denies any chest pain or shortness of breath. She is alert but confused so history is unreliable. She can not tell me why she is on Bactrim. Review of Systems Review of Systems: ROS unobtainable: Yes unobtainable due to mental status Exam Narrative: AF 97.3 130/64 78 16 94% ra Gen - NARD lying almost flat in bed. Chest -lungs are clear anteriorly and in the flanks. Normal respiratory rate CV - RRR S1/S2 Abd - Soft, NT/ND, Positive BS -Orozco secured draining clear yellow urine Ext -left lateral hip dressing is clean, dry and intact. 2+ DP pulses on the left. Neuro -awake, alert but confused. No focal weakness. No facial droop. Psych -pleasant and cooperative. Skin - Warm and dry Objective Data Vital Signs Vital Signs: Vital Signs - 24 hr 02/09/23 12:00 02/09/23 1
[2023-02-10] MEDS: FLUTICASONE PROPIONATE 0.05% NA SPR 16 GM BTL (*BKC) 2 SPRAY NASAL (10:28)
[2023-02-10] MEDS: ARTIFICIAL TEARS OPHTH SOLN 15 ML BOTTLE 1 DROP EACH EYE ×3 (10:28→17:08)
--- NOTE | 2023-02-10 11:52 | PM.PNORT ---
Progress Note: A&P Assessment and Plan (1) Fracture, intertrochanteric, left femur: Qualifiers: Encounter type: initial encounter Fracture type: closed Fracture alignment: displaced Qualified Code(s): S72.142A - Displaced intertrochanteric fracture of left femur, initial encounter for closed fracture Code(s): S72.142A - Displaced intertrochanteric fracture of left femur, initial encounter for closed fracture Status: Acute Assessment and Plan: POD 2 DOING WELL. SHE WILL BE TRANSFERRED TO SNF ONCE STABLE. SHE WILL F/U IN 6 WEEKS. Subjective Subjective Date/Time Seen: 02/10/23 11:52 Interval history: POD 2 DOING WELL. NO CALF PAIN Exam Extrem: Other: VSS AFEBRILE DRESSING DRY NV INTACT DRESSING DRY, CALF AND THIGH SOFT NON TENDER Objective Data Vital Signs Vital Signs: Vital Signs - 24 hr 02/09/23 12:00 02/09/23 16:00 02/09/23 20:51 Temperature 36.8 C 35.8 C L 36.4 C Pulse Rate 61 61 54 L Respiratory Rate 14 14 16 Blood Pressure 101/54 L 99/52 L 99/48 L Pulse Oximetry 98 99 92 Oxygen Delivery 02/09/23 20:00 02/10/23 04:23 02/10/23 09:00 Temperature 36.3 C L Pulse Rate 63 Respiratory Rate 16 Blood Pressure 130/64 Pulse Oximetry 92 95 94 Oxygen Delivery Room Air Room Air 02/10/23 09:52 02/10/23 09:52 Temperature Pulse Rate 78 Respiratory Rate Blood Pressure Pulse Oximetry Oxygen Delivery Room Air Intake/Output Intake/Output: Intake & Output 02/07/23 02/08/23 02/09/23 02/10/23 23:59 23:59 23:59 23:59 Intake Total 50 350 2864 120 Output Total 750 1550 850 400 Balance -700 -1200 2013 Meds/Results Medications: Active Medications Generic Name Dose Route Start Last Admin Trade Name Freq PRN Reason Stop Dose Admin Acetaminophen 650 mg 02/10/23 10:38 Acetaminophen 325 Mg Tablet PO Q6H PRN Mild Pain (1-5) Or Fever Hydrocodone Bitart/Acetaminophen 1 tab 02/10/23 10:39 Hydrocodone/Acetaminophen (*Crx) 5-325 Mg Tablet PO Q3H PRN Pain Rated 6 or Greater Amlodipine Besylate 5 mg 02/08/23 09:00 02/10/23 09:52 Amlodipine Besylate 5 Mg Tablet PO 5 mg DAILY LINA Administration Artificial Tears 1 drop 02/07/23 17:00 02/10/23 10:28 Artificial Tears Ophth Soln 15 Ml Bottle EACH EYE 1 drop QID LINA Administration Carvedilol 12.5 mg 02/07/23 21:00 02/10/23 09:52 Carvedilol 12.5 Mg Tablet PO 12.5 mg Q12H LINA Administration Celecoxib 200 mg 02/09/23 08:00 02/10/23 09:51 Celecoxib 200 Mg Capsule PO 200 mg DAILY@0800 LINA Administration Cyanocobalamin 1,000 mcg 02/09/23 09:00 02/10/23 09:52 Cyanocobalamin 1,000 Mcg Tablet PO 1,000 mcg DAILY LINA Administration Enoxaparin Sodium 40 mg 02/09/23 09:00 02/10/23 09:54 Enoxaparin 40 Mg/0.4 Ml Syringe SUB-Q 40 mg DAILY LINA Administration Ferrous Sulfate 325 mg 02/09/23 09:00 02/10/23 09:53 Ferrous Sulfate [address] PO 325 mg DAILY LINA Administration Fluticasone Propionate 2 spray 02/08/23 09:00 02/10/23 10:28 Fluticasone Propionate 0.05% Na Spr 16 Gm Btl (*Bkc) NASAL 2 spray DAILY LINA Administration Hydrochlorothiazide 25 mg 02/09/23 09:00 02/10/23 09:51 Hydrochlorothiazide 25 Mg Tablet PO 25 mg DAILY LINA Administration Hydroxyzine Pamoate 50 mg 02/08/23 20:57 Hydroxyzine Pamoate 25 Mg Capsule PO Q4H PRN Itching Levothyroxine Sodium 50 mcg 02/08/23 06:30 02/10/23 05:31 Levothyroxine Sodium 50 Mcg Tablet PO 50 mcg DAILY@0630 LINA Administration Lorazepam 0.5 mg 02/08/23 20:57 02/09/23 21:11 Lorazepam (*Crx) 0.5 Mg Tablet PO 0.5 mg TID PRN Administration anxiety Losartan Potassium 100 mg 02/09/23 09:00 02/10/23 09:51 Losartan Potassium 100 Mg Tablet PO 100 mg DAILY LINA Administration Multivitamins Therapeutic 1 tablet 02/09/23 09:00 02/10/23 09:52 Multivitamins Therapeutic Tab (*Bkc) PO 1
[2023-02-10 14:00] VITALS: BP 98/50; PULSE 63; RESP 14; TEMP 36.6; O2SAT 99
[2023-02-10 20:02] VITALS: PULSE 67
[2023-02-10] MEDS: HYDROcodone/acetaminophen (*CRX) 5-325 MG TABLET 1 TAB PO (20:03)
[2023-02-10 21:18] VITALS: BP 119/75; PULSE 67; RESP 15; TEMP 36.8; O2SAT 94
[2023-02-11 05:53] VITALS: BP 129/64; PULSE 59; RESP 13; TEMP 36.5; O2SAT 96
[2023-02-11 06:09] LABS: Basophils Absolute Auto 0.1 K/mm3 (0.0-0.1); Basophils Percent Auto 0.7 % (0.2-1.2); Eosinophils Absolute Auto 0.3 K/mm3 (0-0.3); Hematocrit 26.8 % (37.0-47.0); Hemoglobin 9.1 g/dL (12.0-15.0); Immature Granulocyte Absolute 0.06 K/mm3 (0.00-0.031); Immature Granulocyte Percent A 0.6 % (0-0.5); Lymphocytes Absolute Auto 1.69 K/mm3 (0.9-3.2); Mean Corpuscular Hemoglobin 32.9 pg (26-34); Mean Corpuscular Volume 96.8 fl (80-100); Mean Platelet Volume 10.6 fl (7.4-10.4); Monocytes Absolute Auto 1.1 K/mm3 (0.1-0.6); Monocytes Percent Auto 11.5 % (2.6-8.5); Neutrophils Absolute Auto 6.7 K/mm3 (1.3-6.7); Neutrophils Percent Auto 67.2 % (45.5-73.1); Platelet Count Result 241 k/mm3 (150-375); Red Blood Count 2.77 M/mm3 (4.2-5.4); Red Cell Distribution Width 14.2 % (11.5-14.5); White Blood Count 9.9 K/mm3 (4.5-10.0)
[2023-02-11] MEDS: LEVOTHYROXINE SODIUM 50 MCG TABLET PO (06:17)
[2023-02-11 06:18] LABS: Alanine Aminotransferase 19 U/L (6-35); Alkaline Phosphatase 48 U/L (38-126); Anion Gap 8 mmol/L (8-16); Aspartate Amino Transferase 42 U/L (14-36); Bilirubin,Total 0.5 mg/dL (0.2-1.3); Blood Urea Nitrogen 17 mg/dL (7-17); Calcium 9.4 mg/dL (8.4-10.2); Carbon Dioxide 20 mmol/L (22-30); Chloride 104 mmol/L (98-107); Estimated CRCL calculation 59 ml/min; Estimated Glomerular Filt Rate > 60; Glucose 106 mg/dL (65-110); Magnesium 1.2 mg/dL (1.6-2.3); Potassium 3.1 mmol/L (3.4-5.0); Sodium 132 mmol/L (137-145)
[2023-02-11 06:31] LABS: Appearance Urine Cloudy (Clear); Bacteria Urine None Seen /hpf; Bilirubin Urine Negative (Negative); Blood Urine Negative (Negative); Color Urine Yellow (Yellow); Glucose Urine UA Negative (Negative); Ketones Urine Negative (Negative); Leukocyte Esterase Ur Negative LEU/UL (Negative); Nitrate Urine Negative (Negative); Non Pathogenic Casts 0-2; Protein Urine Negative (Negative); RBC Urine 0-2 /hpf (0-2); Specific Grav Ur 1.013 (1.001-1.035); Squamous Epithelial Cell Urine None seen /hpf (Few); Urobilinogen Urine 0.2 mg/dL (<2.0); WBC Urine 0-5 /hpf
[2023-02-11 07:05] LABS: Add Urine Microscopic? YES
[2023-02-11] MEDS: CHOLECALCIFEROL 1,000 UNITS TABLET 5000 UNITS PO (08:41)
[2023-02-11] MEDS: VENLAFAXINE HCL XR 75 MG CAP.ER.24H 150 MG PO (08:41)
[2023-02-11] MEDS: PANTOPRAZOLE 40 MG TABLET PO (08:41)
[2023-02-11 08:42] VITALS: PULSE 70
[2023-02-11] MEDS: FERROUS SULFATE 325 MG TABLET DR PO (08:42)
[2023-02-11] MEDS: LOSARTAN POTASSIUM 100 MG TABLET PO (08:42)
[2023-02-11] MEDS: ENOXAPARIN 40 MG/0.4 ML SYRINGE SUB-Q (08:42)
[2023-02-11] MEDS: polyethylene glycoL 3350 17 GM POWD.PACK PO (08:42)
[2023-02-11] MEDS: CELECOXIB 200 MG CAPSULE PO (08:42)
[2023-02-11] MEDS: POTASSIUM CHLORIDE 10 MEQ ER TABLET PO (08:42)
[2023-02-11] MEDS: carvediloL 12.5 MG TABLET PO (08:42)
[2023-02-11] MEDS: CYANOCOBALAMIN 1,000 MCG TABLET 1000 MCG PO (08:42)
[2023-02-11] MEDS: SULFAMETHOXAZOLE/TRIMETHOPRIM 800/160 MG DS TABLET 1 TAB PO (08:42)
[2023-02-11] MEDS: SENNA/DOCUSATE SODIUM TABLET 2 TAB PO ×2 (08:42→16:59)
[2023-02-11] MEDS: SUCRALFATE 1 GM TABLET PO ×3 (08:42→16:59)
[2023-02-11] MEDS: MULTIVITAMINS THERAPEUTIC TAB (*BKC) 1 TABLET PO (08:44)
[2023-02-11] MEDS: POTASSIUM CHLORIDE 20 MEQ ER TABLET PO (08:58)
[2023-02-11] MEDS: MAGNESIUM SULF 2 GM/WATER 50ML 2 GM/50 ML BAG IVPB (08:58)
[2023-02-11] MEDS: ARTIFICIAL TEARS OPHTH SOLN 15 ML BOTTLE 1 DROP EACH EYE ×3 (09:03→16:59)
[2023-02-11] MEDS: FLUTICASONE PROPIONATE 0.05% NA SPR 16 GM BTL (*BKC) 2 SPRAY NASAL (09:03)
[2023-02-11] MEDS: SILVER SULFADIAZINE 1% CR 400 GM JAR (*BKC) 1 APPLIC TOPICAL (09:04)
[2023-02-11 14:00] VITALS: BP 104/56; PULSE 58; RESP 18; TEMP 36.8; O2SAT 97
--- NOTE | 2023-02-11 14:46 | PM.DS ---
DS: Admitting Diagnosis Discharge Date 02/11/23 Admitting Diagnosis Hip pain after a fall DS: Discharge Diagnosis Discharge Diagnosis (1) Fracture, intertrochanteric, left femur: Qualifiers: Encounter type: initial encounter Fracture type: closed Fracture alignment: displaced Qualified Code(s): S72.142A - Displaced intertrochanteric fracture of left femur, initial encounter for closed fracture Code(s): S72.142A - Displaced intertrochanteric fracture of left femur, initial encounter for closed fracture Status: Acute (2) Confusion: Code(s): R41.0 - Disorientation, unspecified Status: Acute (3) Adult hypothyroidism: Code(s): E03.9 - Hypothyroidism, unspecified Status: Acute (4) Benign essential hypertension: Code(s): I10 - Essential (primary) hypertension Status: Acute (5) Hypokalemia: Code(s): E87.6 - Hypokalemia Status: Acute (6) Hypomagnesemia: Code(s): E83.42 - Hypomagnesemia Status: Inactive (7) Gastric ulcer: Code(s): K25.9 - Gastric ulcer, unspecified as acute or chronic, without hemorrhage or perforation Status: Acute DS: Summary Hospital Course Reason for hospitalization: 78yo female with HTN, gastric ulcer, and right ankle osteomyelitis who presents after a fall from home is currently being treated for left femur fracture, taken to the OR 02/08 for left intertrochanteric femur fracture fixation. Please see H&P for details Hospital Course: Patient presents with complaints of hip pain after a fall at home.? X-ray shows intratrochanteric fracture of the proximal.? Orthopedics was consulted and patient was taken to the OR on 02/08/2023 and underwent insertion of gamma marek to the the left hip. Pain was controlled. She was confused which could be related to narcotics so these were decreased. She worked with PT and OT. Patient was not confused on admission.? No focal weakness.?White count was increased but normalized the next day.? UA was clear.?CXR was clear. CT of the head showing no acute findings. Mental status improved with cut back the narcotics. Patient's blood pressure was monitored closely and was occasionally soft at times. We held HCTZ and Norvasc. Potassium 2.8 on admission.? Probably related to hydrochlorothiazide. Potassium and magnesium were replaced. She is currently being treated with osteomyelitis to the right ankle with Bactrim. SHe overall did well and was able to be discharged on 02/11/23. Status at Discharge Cognitive/behavioral status at discharge: stable Time Spent with Patient Time attestation: Total time spent providing and/or coordinating discharge services: 35 minutes Time spent: Greater than 30 minutes Exam Narrative: AF 97.7 129/64 70 13 96% ra Gen - NARD Chest - CTA bilaterally, nml RR CV - RRR S1/S2 Abd - Soft, NT/ND, Positive BS Ext -left lateral hip dressing is clean, dry and intact Neuro -awake, alert and appropriate Psych -pleasant and cooperative. Skin - Warm and dry DS: Data Data Completed and Pending Labs on day of discharge: Labs from last 24 hours 02/11/23 02/11/23 06:14 05:53 WBC 9.9 RBC 2.77 L Hgb 9.1 L Hct 26.8 L MCV 96.8 MCH 32.9 MCHC 34.0 RDW 14.2 Plt Count 241 MPV 10.6 H Immature Gran % (Auto) 0.6 H Neut % (Auto) 67.2 Lymph % (Auto) 17.0 L Weld % (Auto) 11.5 H Eos % (Auto) 3.0 Baso % (Auto) 0.7 Lymph # (Auto) 1.69 Weld # (Auto) 1.1 H Eos # (Auto) 0.3 Baso # (Auto) 0.1 Abs Immat Gran (auto) 0.06 H Absolute Neuts (auto) 6.7 Absolute Nucleated RBC 0.0 Nucleated RBC % 0.0 Sodium 132 L Potassium 3.1 L Chloride 104 Carbon Dioxide 20 L Anion Gap 8 BUN 17 Creatinine 0.50 L Estim Creat Clear Calc 59 Estimated GFR > 60 Glucose 106 Calcium 9.4 Magnesium 1.2 L Total Bilirubin 0.5 AST 42 H ALT 19 Alkaline Phosphatase 48 Total Protein 6.0
== END 2023-02-11 17:15 | DRG 481 ==
LOC: ANHED 12:51 → ANH3MEDSUR 14:08
PROVIDERS: Nurse Practitioner Family; Orthopaedic Surgery; Student in an Organized Health Care Education/Training Program; Admitting Provider General Practice; Emergency Provider Emergency Medicine; PCP Nurse Practitioner Family; Visit Provider Internal Medicine
PROC: 0QS736Z Reposition Left Upper Femur with Intramedullary Internal Fixation Device, Percutaneous Approach (ICD-10-PCS; CPT 27245; principal; 2023-02-08 15:00)
DX: S72.142A Displaced intertrochanteric fracture of left femur, initial encounter for closed fracture (principal); M86.9 Osteomyelitis, unspecified; I10 Essential (primary) hypertension; E87.6 Hypokalemia; E83.42 Hypomagnesemia; E03.9 Hypothyroidism, unspecified; K25.9 Gastric ulcer, unspecified as acute or chronic, without hemorrhage or perforation; M41.9 Scoliosis, unspecified; R41.0 Disorientation, unspecified; T40.605A Adverse effect of unspecified narcotics, initial encounter; W19.XXXA Unspecified fall, initial encounter; Z87.891 Personal history of nicotine dependence
CPT/HCPCS: 36415; 70450; 71045; 73502; 80053; 81001; 83735; 84132; 85025; 85027; 85610; 85730; 86850; 86900; 86901; 93005; 97110; 97161; 97166; 97530; 97535; 99199; 99285; A9270; C1713; J0690; J1170; J1650; J2270; J3010; J3475; J3480; J7030; J7040; J7120